=== PATIENT | male | born 1935 | race Caucasian/White ===

== ENCOUNTER → 2019-12-12 13:22 | Outpatient (BNVA) | payer MEDICARE, SELFPAY | PROVIDERS: PCP Internal Medicine; Visit Provider Internal Medicine | DX: I48.20 Chronic atrial fibrillation, unspecified (principal); Z51.81 Encounter for therapeutic drug level monitoring; Z79.01 Long term (current) use of anticoagulants | CPT/HCPCS: 85610 ==

== ENCOUNTER 2020-01-04 13:05 | Inpatient (IN) | payer MEDICARE, SELFPAY ==
[2020-01-04] VITALS (18 sets, daily range): BP systolic 119–135; BP diastolic 59–82; PULSE 60–120; RESP 16–45; TEMP 36.9–37.4; O2SAT 87–98; BMI 26.6; BMI 26.4
--- NOTE | 2020-01-04 13:24 | ECG_ITS ---
Test Reason : WEAKNESS Blood Pressure : / mmHG Vent. Rate : 125 BPM Atrial Rate : 156 BPM P-R Int : 000 ms QRS Dur : 110 ms QT Int : 310 ms P-R-T Axes : 000 103 -46 degrees QTc Int : 447 ms Atrial fibrillation with rapid ventricular response with premature ventricular or aberrantly conducted complexes Rightward axis Incomplete right bundle branch block Possible Inferior infarct (cited on or before 15-JAN-2008) ST & T wave abnormality, consider lateral ischemia Abnormal ECG When compared with ECG of 15-JAN-2008 15:40, Significant changes have occurred Referred By: Maggi Workman Electronically Signed By:STAN SUMMERS MD
--- NOTE | 2020-01-04 13:25 | XR_ITS ---
EXAMINATION: XR CHEST CLINICAL INFORMATION: Cough shortness of breath and hypoxia COMPARISON: None TECHNIQUE: Frontal view of the chest was obtained. FINDINGS: There is mild cardiac enlargement. Diffuse multifocal infiltrates are present. No pleural effusions are seen. No peribronchial cuffing is seen. Findings are suggestive of multifocal pneumonia although an unusual manifestation of CHF is possibility but thought to be very unlikely. XR/XR chest 1V IMPRESSION: Diffuse multifocal infiltrates suggestive of pneumonia.
[2020-01-04] MEDS: Magnesium Sulfate/H2O 2 GM/50 ML PIGGYBACK IV (13:35)
--- NOTE | 2020-01-04 13:46 | ED.SOB ---
HPI - SOB/Dyspnea General Chief Complaint: Dyspnea Stated Complaint: sob Time Seen by Provider: 01/04/20 13:16 Source: EMS Mode of arrival: EMS Limitations: no limitations History of Present Illness HPI Narrative: 84 yo male with past medical history of afib on coumadin, recent RLE DVT and PE, OA, CAD s/p stents, HTN, HLD here with shortness of breath. The patient tells me that he has had shortness of breath over the last few days. He has had a dry cough. No fevers or chills or body aches. No chest pain. No leg swelling. On EMS arrival the patient had room air saturations in the high 70s. He received 125 mg of Solu-Medrol and a DuoNeb prior to arrival. Per family and the patient was around other family members on December 20 who were COVID positive. MD elicited complaint: shortness of breath Onset (ago): day(s) Timing: constant Severity: moderate Exacerbating factors: nothing Relieving factors: oxygen and rest Associated symptoms: denies other symptoms Treatment prior to arrival: oxygen and bronchodilator Related Data Home oxygen amount: none Home Medications Medication Instructions Recorded Confirmed amlodipine 1 tab PO DAILY 01/04/20 01/04/20 atorvastatin 1 tab PO DAILY 01/04/20 01/04/20 furosemide 1 tab PO DAILY 01/04/20 01/04/20 gabapentin 1 cap PO TID 01/04/20 01/04/20 gabapentin 1 cap PO TID 01/04/20 01/04/20 levothyroxine 1 tab PO Q OTHER DAY 01/04/20 01/04/20 lisinopril 1 tab PO DAILY 01/04/20 01/04/20 metoprolol succinate 1 tab PO DAILY 01/04/20 01/04/20 tamsulosin 1 cap PO DAILY 01/04/20 01/04/20 tamsulosin 1 cap PO DAILY 01/04/20 01/04/20 warfarin 1 tab PO DAILY 01/04/20 01/04/20 Allergies Allergy/AdvReac Type Severity Reaction Status Date / Time No Known Allergies Allergy Mild NO Verified 01/02/20 13:09 Review of Systems Review of Systems: Yes all other systems are reviewed and are negative Constitutional: Constitutional: Reports no additional constitutional complaints, Denies body ache(s), Denies chills, Denies fever(s), Denies headache(s) and Denies weakness Eyes: Eyes: Reports no additional eye complaints and Denies change in vision ENT: Reports system reviewed and no additional complaints, except as documented, Denies dizziness, Denies headache(s), Denies nasal congestion, Denies nasal discharge and Denies neck pain Cardiovascular: Cardiovascular: Reports no additional cardiovascular complaints, Denies chest pain, Denies leg edema and Reports dyspnea Respiratory: Respiratory: Reports no additional respiratory complaints, Reports cough and Reports dyspnea Gastrointestinal: Gastrointestinal: Reports no additional gastrointestinal complaints, Denies abdominal pain, Denies diarrhea, Denies nausea and Denies vomiting Genitourinary: Genitourinary: Denies urinary incontinence Musculoskeletal: Musculoskeletal: Reports no additional musculoskeletal complaints, Denies back pain, Denies arthralgias, Denies joint swelling, Denies neck pain, Denies numbness and Denies tingling Integumentary/Breasts: Skin/Breast: Reports system reviewed and no additional complaints, except as docu and Denies rash Neurologic: Reports system reviewed and no additional complaints, except as documented, Denies Abnormal speech present, Denies dizziness, Denies headache(s), Denies numbness, Denies tingling and Denies weakness PMFSH Past Medical History Attestation statement: The following information was validated with the patient. Source: obtained from family and nursing notes reviewed Medical History (Updated 01/04/20 @ 17:05 by Maggi Workman NP) A-fib COPD (chronic obstructive pulmonary disease) Coronary artery disease DVT (deep venous thrombosis) High cholesterol Hypertension Osteoarthritis Pulmonary embolism Surgical History (Updated 01/04/20 @ 13:51 by Maggi Workman NP) H/O heart artery stent Social History Social History Alcohol intake: never Smoked in Last 30 Days: No Use of substances other than those prescribed or required for medical reasons: No Advance Directives: No Advance Directives Information Provided: No Physical Exam Vital Signs: Vital Signs: Vital Signs Temp Pulse Resp BP Pulse Ox 01/04/20 16:50 98 125/59 L 01/04/20 14:25 120 H 30 H 90 L 01/04/20 13:50 30 H 01/04/20 13:45 100 126/69 01/04/20 13:19 98.7 F 102 H 45 H 135/74 87 L 01/04/20 13:15 111 H 135/74 Body Mass Index 26.6 Const: General: in distress respiratory Orientation/consciousness: patient oriented x3 Limitations: no limitations HENMT: Head: Yes normal to inspection Ears: hearing grossly normal bilaterally General nose exam: Normal external nose present Face and sinus: Yes normal facial exam Mouth: Normal oral and palatal mucosa present Throat: Yes posterior oropharynx normal Eyes: General: appearance normal, both eyes and all related structures Pupils: Equal, round and reactive pupils present Neck: Neck: Yes normal visual inspection Chest: Chest palpation & inspection: normal inspection of the chest Resp: Other: Patient is sitting upright slightly leaning forward speaking short phrases. His has a respiratory rate in the 30s. He has mild intercostal retractions. He has diminished breath sounds bilaterally with some expiratory wheezing noted in the bilateral upper airways. Cardio: Rate: tachycardic Rhythm: regular rhythm Peripheral pulses: Peripheral pulses 2+ throughout GI: Inspection: Yes normal to inspection Palpation (GI): Soft to palpation and nontender Auscultation: normal bowel sounds Back/Spine/Pelvis: Thoracic/Lumbar Spine: thoracic and lumbar spine normal to inspection Skin: General skin exam: no rashes or lesions noted Neuro: General: patient oriented x3, no focal motor deficits and normal sensation to monofilament Cranial nerves: Yes Equal, round and reactive pupils present Cognition (Neuro): normal cognition Speech: No Abnormal speech present Gait exam (Neuro): Normal gait present Motor exam (neuro): 5/5 motor strength present throughout Extrem: General: Yes normal to inspection Course Course Course Narrative: 84 yo male Here with shortness of breath, cough for the last few days. On arrival the patient is tachycardic, tachypneic, hypoxic (79%). He was placed on 6 L of oxygen with an oxygen saturation improving to greater than 90%. He has had COVID exposure. Will need labs including blood cultures, lactic acid, COVID labs, rapid COVID test, chest x-ray, EKG. Received Solu-Medrol and a DuoNeb prior to arrival. Will give additional albuterol, magnesium, gentle hydration. 1400-Discussed with family/patient. Patient is full code. Will need admission. 1440- Chest x-ray consistent with multifocal pneumonia. Patient has already received a dose of ceftriaxone. Added on azithromycin. Likely from COVID infection. 1700- COVID positive. Patient currently has an oxygen saturation 92% on 100% non-rebreather. His ABG shows respiratory alkalosis with some compensation. Alert and oriented x3. Will continue oxygen delivery method. Initial troponin was mildly elevated. Likely due to demand ischemia. No EKG changes or chest pain. Will plan for 3 hour repeat troponin. D-dimer is elevated which is likely secondary to COVID infection. Patient is currently anticoagulated with therapeutic INR and already has a history of pulmonary embolism. No need for additional imaging at this time. Potassium 3.0. Patient was given p.o. 40 mEq replacement. BNP mildly elevated. No signs or symptoms of fluid overload. Chest x-ray does show some vascular congestion so 20 mg of IV Lasix was ordered. Patient had a mildly elevated lactic acid. He was given gentle hydration due to concern for fluid overload and received 500 of normal saline IV. A Pbalo catheter was placed by nursing. Discussed case with Dr Bello from ICU. Plan for admit to ICU service. I did call and update family (son ROBBY) and they are aware of plan for admission. MDM - SOB/Dyspnea MDM Narrative Medical decision making narrative: Considered COVID infection, viral syndrome, PNA, PE, CHF exacerbation COVID infection with multifocal PNA. H/o PE with therapeutic INR, not likely saddle PE, not likely new PE. Medicine can trend d dimer. Also likely CHF new onset with elevated BNP and x-ray concerning with some vascular congestion. Medical Records Attestation: I reviewed the patient's medical records. Lab Data Attestation: I reviewed the patient's lab results. Result diagrams: 01/04/20 14:14 01/04/20 14:13 Labs: Lab Results 01/04/20 01/04/20 01/04/20 Range/Units 14:13 14:13 14:13 WBC (4.8-10.8) X10*3/uL RBC (4.60-5.80) X10*6/uL Hgb (14.0-18.0) g/dl Hct (42-52) % MCV (80-98) fL MCH (27.0-33.0) pg MCHC (31.0-36.0) g/dl RDW (11.0-16.0) % Plt Count (160-400) X10*3/uL MPV (9.4-12.4) fL Immature Gran % (Auto) (0.0-0.4) % Neut % (Auto) (45-73) % Lymph % (Auto) (20-40) % [place] % (Auto) (2-11) % Eos % (Auto) (0-4) % Baso % (Auto) (0-2) % Lymph # (Auto) (1.2-4.9) X10*3/uL [place] # (Auto) (0.1-1.2) X10*3/uL Eos # (Auto) (0.0-0.4) X10*3/uL Baso # (Auto) (0.0-0.2) X10*3/uL Abs Immat Gran (auto) (0.00-0.03) X10*3/uL Absolute Neuts (auto) (2.0-8.3) X10*3/uL Absolute Nucleated RBC (0.0-0.012) X10*3/uL Nucleated RBC % (auto) (0.0-0.2) /100WBC Smear Tech's Comments PT 28.7 H (10.8-13.0) SEC INR 2.4 H (0.9-1.1) D-Dimer 1796 NG/ML ABG pH (7.35-7.45) ABG pCO2 (32-45) mmhg ABG pO2 (83-108) mmhg ABG HCO3 (22-26) mmol/l ABG O2 Saturation % ABG Base Excess Oxygen Given Sodium 141 (135-145) mmol/L Potassium 3.0 L (3.3-5.1) mmol/l Chloride 108 (96-108) mmol/L Carbon Dioxide 19 L (22-29) mmol/L Anion Gap 17 (12-20) BUN 18 H (9-16) mg/dL Creatinine 0.90 (0.5-1.4) mg/dL Estim Creat Clear Calc 56.1 Estimated GFR > 60 Random Glucose 172 H (60-115) mg/dL Lactic Acid 2.8 H* (0.5-2.0) mmol/L Calcium 7.4 L (8.4-10.2) mg/dL Magnesium 3.3 H (1.6-2.6) mg/dL Ferritin (20-250) ng/mL Total Bilirubin 1.4 H (0.0-1.0) mg/dL Direct Bilirubin 0.7 H (0.0-0.5) mg/dL AST 20 (5-37) U/L ALT 10 (0-40) U/L Alkaline Phosphatase 127 H (39-117) U/L Lactate Dehydrogenase (118-273) U/L Total Creatine Kinase 106 (38-174) U/L Troponin I High Sens (<3.5-35.0) ng/L B-Natriuretic Peptide (<100) pg/mL Total Protein 6.1 L (6.5-8.0) g/dL Albumin 3.1 L (3.5-5.0) g/dL Procalcitonin ng/mL Coronavirus (PCR) (Negative) 01/04/20 01/04/20 01/04/20 Range/Units 14:13 14:14 14:14 WBC 6.6 (4.8-10.8) X10*3/uL RBC 4.16 L (4.60-5.80) X10*6/uL Hgb 11.2 L (14.0-18.0) g/dl Hct 35.9 L (42-52) % MCV 86.3 (80-98) fL MCH 26.9 L (27.0-33.0) pg MCHC 31.2 (31.0-36.0) g/dl RDW 16.2 H (11.0-16.0) % Plt Count 283 (160-400) X10*3/uL MPV 9.1 L (9.4-12.4) fL Immature Gran % (Auto) 0.6 H (0.0-0.4) % Neut % (Auto) 92.7 H (45-73) % Lymph % (Auto) 4.4 L (20-40) % [place] % (Auto) 2.1 (2-11) % Eos % (Auto) 0.0 (0-4) % Baso % (Auto) 0.2 (0-2) % Lymph # (Auto) 0.3 L (1.2-4.9) X10*3/uL [place] # (Auto) 0.1 (0.1-1.2) X10*3/uL Eos # (Auto) 0.0 (0.0-0.4) X10*3/uL Baso # (Auto) 0.0 (0.0-0.2) X10*3/uL Abs Immat Gran (auto) 0.04 H (0.00-0.03) X10*3/uL Absolute Neuts (auto) 6.1 (2.0-8.3) X10*3/uL Absolute Nucleated RBC 0.000 (0.0-0.012) X10*3/uL Nucleated RBC % (auto) 0.0 (0.0-0.2) /100WBC Smear Tech's Comments VERIFIED PT (10.8-13.0) SEC INR (0.9-1.1) D-Dimer NG/ML ABG pH (7.35-7.45) ABG pCO2 (32-45) mmhg ABG pO2 (83-108) mmhg ABG HCO3 (22-26) mmol/l ABG O2 Saturation % ABG Base Excess Oxygen Given Sodium (135-145) mmol/L Potassium (3.3-5.1) mmol/l Chloride (96-108) mmol/L Carbon Dioxide (22-29) mmol/L Anion Gap (12-20) BUN (9-16) mg/dL Creatinine (0.5-1.4) mg/dL Estim Creat Clear Calc Estimated GFR Random Glucose (60-115) mg/dL Lactic Acid (0.5-2.0) mmol/L Calcium (8.4-10.2) mg/dL Magnesium (1.6-2.6) mg/dL Ferritin 227 (20-250) ng/mL Total Bilirubin (0.0-1.0) mg/dL Direct Bilirubin (0.0-0.5) mg/dL AST (5-37) U/L ALT (0-40) U/L Alkaline Phosphatase (39-117) U/L Lactate Dehydrogenase 470 H (118-273) U/L Total Creatine Kinase (38-174) U/L Troponin I High Sens 24.7 (<3.5-35.0) ng/L B-Natriuretic Peptide 478 H (<100) pg/mL Total Protein (6.5-8.0) g/dL Albumin (3.5-5.0) g/dL Procalcitonin ng/mL Coronavirus (PCR) (Negative) 01/04/20 01/04/20 01/04/20 Range/Units 14:14 14:15 15:09 WBC (4.8-10.8) X10*3/uL RBC (4.60-5.80) X10*6/uL Hgb (14.0-18.0) g/dl Hct (42-52) % MCV (80-98) fL MCH (27.0-33.0) pg MCHC (31.0-36.0) g/dl RDW (11.0-16.0) % Plt Count (160-400) X10*3/uL MPV (9.4-12.4) fL Immature Gran % (Auto) (0.0-0.4) % Neut % (Auto) (45-73) % Lymph % (Auto) (20-40) % [place] % (Auto) (2-11) % Eos % (Auto) (0-4) % Baso % (Auto) (0-2) % Lymph # (Auto) (1.2-4.9) X10*3/uL [place] # (Auto) (0.1-1.2) X10*3/uL Eos # (Auto) (0.0-0.4) X10*3/uL Baso # (Auto) (0.0-0.2) X10*3/uL Abs Immat Gran (auto) (0.00-0.03) X10*3/uL Absolute Neuts (auto) (2.0-8.3) X10*3/uL Absolute Nucleated RBC (0.0-0.012) X10*3/uL Nucleated RBC % (auto) (0.0-0.2) /100WBC Smear Tech's Comments PT (10.8-13.0) SEC INR (0.9-1.1) D-Dimer NG/ML ABG pH 7.49 H (7.35-7.45) ABG pCO2 28 L (32-45) mmhg ABG pO2 59 L (83-108) mmhg ABG HCO3 21 L (22-26) mmol/l ABG O2 Saturation 90.3 % ABG Base Excess -1.6 Oxygen Given 50% Sodium (135-145) mmol/L Potassium (3.3-5.1) mmol/l Chloride (96-108) mmol/L Carbon Dioxide (22-29) mmol/L Anion Gap (12-20) BUN (9-16) mg/dL Creatinine (0.5-1.4) mg/dL Estim Creat Clear Calc Estimated GFR Random Glucose (60-115) mg/dL Lactic Acid (0.5-2.0) mmol/L Calcium (8.4-10.2) mg/dL Magnesium (1.6-2.6) mg/dL Ferritin (20-250) ng/mL Total Bilirubin (0.0-1.0) mg/dL Direct Bilirubin (0.0-0.5) mg/dL AST (5-37) U/L ALT (0-40) U/L Alkaline Phosphatase (39-117) U/L Lactate Dehydrogenase (118-273) U/L Total Creatine Kinase (38-174) U/L Troponin I High Sens (<3.5-35.0) ng/L B-Natriuretic Peptide (<100) pg/mL Total Protein (6.5-8.0) g/dL Albumin (3.5-5.0) g/dL Procalcitonin 0.08 ng/mL Coronavirus (PCR) POSITIVE A (Negative) Imaging Data Chest x-ray: Attestation: I personally reviewed and interpreted this imaging study as follows: Radiologist's impression: EXAMINATION: XR CHEST CLINICAL INFORMATION: Cough shortness of breath and hypoxia COMPARISON: None TECHNIQUE: Frontal view of the chest was obtained. FINDINGS: There is mild cardiac enlargement. Diffuse multifocal infiltrates are present. No pleural effusions are seen. No peribronchial cuffing is seen. Findings are suggestive of multifocal pneumonia although an unusual manifestation of CHF is possibility but thought to be very unlikely. XR/XR chest 1V IMPRESSION: Diffuse multifocal infiltrates suggestive of pneumonia. ECG Data Attestation: I personally reviewed and interpreted this ECG as follows: ECG interpretation date: 01/04/20 ECG interpretation time: 15:09 Interpretation: AFIB with RVR with rate 125. normal qrs, normal qt Critical Care Time Critical Care Time Total Critical Care Time: 60 Attestation: Multiple re-evaluations for respiratory effort with titration of oxygen. Discussion with both hospital service and intensive care unit. Discharge Plan Discharge Clinical Impression: COVID-19, CHF (congestive heart failure), Pneumonia, Elevated lactic acid level, D-dimer, elevated, Elevated troponin, Acute hypokalemia, Hypocalcemia Patient Disposition: Admitted As Inpatient
--- NOTE | 2020-01-04 13:49 | PC.NURSE ---
LABS COMPLETED. MEDICATED PER EMAR. RT AT BEDSIDE FOR TREATMENT AND ABG.
[2020-01-04] MEDS: Albuterol Sulfate (0.083%) 2.5 MG/3 ML VIAL.NEB 5 MG INHALE (13:54)
--- NOTE | 2020-01-04 13:56 | PC.NURSE ---
all labs stuck in lab shoot. care mgr aware.
[2020-01-04] MEDS: 0.9 % Sodium Chloride 500 ML 999 ML IV (14:17)
--- NOTE | 2020-01-04 14:17 | PC.NURSE ---
ALL LABS RE OBTAINED AND SENT
[2020-01-04] MEDS: cefTRIAXone sodium 1 GM in 0.9 % Sodium Chloride 50 ML IV (14:22)
[2020-01-04 14:23] LABS: Pt Ventilation O2% 50%
[2020-01-04 14:26] LABS: Basophils Percent Auto 0.2 % (0-2); Hematocrit 35.9 % (42-52); Hemoglobin 11.2 g/dl (14.0-18.0); Imm Gran Abs Auto 0.04 X10*3/uL (0.00-0.03); Imm Gran Pct Auto 0.6 % (0.0-0.4); Lymphocytes Absolute Auto 0.3 X10*3/uL (1.2-4.9); Lymphocytes Percent Auto 4.4 % (20-40); MANUAL DIFF FLAG SCAN; Mean Corpuscular HGB Conc 31.2 g/dl (31.0-36.0); Mean Corpuscular Hemoglobin 26.9 pg (27.0-33.0); Mean Corpuscular Volume 86.3 fL (80-98); Mean Platelet Volume 9.1 fL (9.4-12.4); Monocytes Absolute Auto 0.1 X10*3/uL (0.1-1.2); Monocytes Percent Auto 2.1 % (2-11); Neutrophils Absolute Auto 6.1 X10*3/uL (2.0-8.3); Neutrophils Percent Auto 92.7 % (45-73); Platelet Count 283 X10*3/uL (160-400); Red Blood Count 4.16 X10*6/uL (4.60-5.80); Red Cell Distribution Width 16.2 % (11.0-16.0); SCAN SMEAR FLAG 1; White Blood Count 6.6 X10*3/uL (4.8-10.8)
[2020-01-04 14:27] LABS: ABG PCO2 28 mmhg (32-45); HCO3 ABG 21 mmol/l (22-26); PO2 ABG 59 mmhg (83-108); pH ABG 7.49 (7.35-7.45)
[2020-01-04 14:28] LABS: Base Excess ABG -1.6; Oxygen Saturation ABG 90.3 %
[2020-01-04 14:31] LABS: INTERNATIONAL NORM RATIO 2.4 (0.9-1.1); Prothrombin Time 28.7 SEC (10.8-13.0)
[2020-01-04 14:45] LABS: SLIDE REVIEW VERIFIED
[2020-01-04 14:47] LABS: Lactate Dehydrogenase 470 U/L (118-273)
[2020-01-04 14:50] LABS: Alanine Aminotransferase 10 U/L (0-40); Albumin Level 3.1 g/dL (3.5-5.0); Alkaline Phosphatase 127 U/L (39-117); Anion Gap 17 (12-20); Aspartate Amino Transferase 20 U/L (5-37); Bilirubin Direct 0.7 mg/dL (0.0-0.5); Bilirubin Total 1.4 mg/dL (0.0-1.0); Blood Urea Nitrogen 18 mg/dL (9-16); Calcium 7.4 mg/dL (8.4-10.2); Carbon Dioxide 19 mmol/L (22-29); Chloride 108 mmol/L (96-108); Creatinine Clr Calc Pharmacy 56.1; Estimated Glomerular Filt Rate > 60; Glucose Random 172 mg/dL (60-115); Magnesium 3.3 mg/dL (1.6-2.6); Sodium 141 mmol/L (135-145); Total Protein 6.1 g/dL (6.5-8.0)
[2020-01-04 14:58] LABS: B Type Natriuretic Peptide 478 pg/mL (<100); Troponin-I High Sensitivity 24.7 ng/L (<3.5-35.0)
[2020-01-04 15:03] LABS: Lactic Acid 2.8 mmol/L (0.5-2.0)
[2020-01-04 15:12] LABS: Ferritin 227 ng/mL (20-250); Procalcitonin 0.08 ng/mL
[2020-01-04] MEDS: Azithromycin 500 MG in 0.9 % Sodium Chloride 250 ML 125 MG IV (15:25)
[2020-01-04] MEDS: Potassium Chloride ER 20 MEQ TAB.ER.PRT 40 MEQ PO (15:25)
[2020-01-04 16:12] LABS: SARS COV2 PCR INHOUSE POSITIVE (Negative)
--- NOTE | 2020-01-04 16:18 | PC.NURSE ---
pediatric np in contact with family. aware of plan of care and denied having any questions.
[2020-01-04 16:20] LABS: Reflex Lactate? Lactic Acid Added
[2020-01-04 16:48] LABS: D Dimer 1796 NG/ML
[2020-01-04] MEDS: Furosemide 20 MG/2 ML VIAL IVPUSH (16:49)
[2020-01-04 17:17] LABS: Glucose Urine UA NEG (NEG); Leukocyte Esterase Urine NEG (NEG); Nitrite Urine NEG (NEG); PH 5.5 (5.0-8.0); Specific Gravity - Urine 1.025 (1.005-1.025); Urine Blood TRACE (NEG); Urine Ketones NEG (NEG); Urine Protein 1+ MG/DL (NEG-TRACE)
[2020-01-04 17:19] LABS: Appearance Urine CLEAR; Color Urine YELLOW
[2020-01-04 17:24] LABS: Mucus Urine TRACE /LPF; Squamous Epithelial Cell Urine TRACE /LPF; WBC Urine 0 /HPF (0-4)
--- NOTE | 2020-01-04 17:24 | PC.NURSE ---
ramesh (son) cell [phone], [place] [phone] rosendo (son) cell [phone]
[2020-01-04 17:25] LABS: Hyaline Casts Urine 0-2 /LPF
--- NOTE | 2020-01-04 17:36 | P.HPCC_ITS ---
History of Present Illness Date of Service: 01/04/20 Chief Complaint: shortness of breath 84-year-old male about 0 a week ago went to a green party with 17 gas a number of whom inadvertently were [place] id 19 positive he 2 became positive started to develop progressive dyspnea this on a background of previous ischemic heart disease with evidence of cardiac dysfunction chronic atrial fibrillation and he is I anticoagulated on Coumadin and therapeutic with INR of 2.4 and is on metoprolol high-dose 200 mg for heart rate control and is EKG now shows atrial fibrillation with rate 120 with respiratory rate that is at least 30 clearly with diaphragmatic effort as well but barely compensated oxygen saturation of 90% on a 100% non-rebreather and he has a right intraventricular conduction defect and nonspecific ST-T changes by EKG he is also 1 lisinopril as an antihypertensive/vaso dilator and amlodipine not known to be a diabetic and thankfully has preserved liver function and renal function but has almost 1800 D-dimer and chest x-ray significant bilateral infiltrates but clearly has evidence of small bilateral pleural effusions and interstitial component which I think is consistent with pulmonary edema as well Review of Systems Review of Systems: 10 point review of systems otherwise negative Constitutional: Constitutional: Denies headache(s) and Denies weakness ENT: Denies dizziness and Denies headache(s) Musculoskeletal: Musculoskeletal: Denies numbness and Denies tingling Neurologic: Reports system reviewed and no additional complaints, except as documented, Denies Abnormal speech present, Denies dizziness, Denies headache(s), Denies numbness, Denies tingling and Denies weakness PMFSH Past Medical History Medical History (Updated 01/04/20 @ 17:45 by Maddie Bello MD) A-fib COPD (chronic obstructive pulmonary disease) Coronary artery disease DVT (deep venous thrombosis) High cholesterol Hypertension Osteoarthritis Pulmonary embolism Surgical History Surgical History (Updated 01/04/20 @ 13:51 by Maggi Workman NP) H/O heart artery stent Social History Social History Alcohol intake: never Smoked in Last 30 Days: No Use of substances other than those prescribed or required for medical reasons: No Advance Directives: No Advance Directives Information Provided: No Meds Allergies Allergy/AdvReac Type Severity Reaction Status Date / Time No Known Allergies Allergy Mild NO Verified 01/02/20 13:09 Home Medications Medication Instructions Recorded Confirmed Type amlodipine 1 tab PO DAILY 01/04/20 01/04/20 History atorvastatin 1 tab PO DAILY 01/04/20 01/04/20 History furosemide 1 tab PO DAILY 01/04/20 01/04/20 History gabapentin 1 cap PO TID 01/04/20 01/04/20 History gabapentin 1 cap PO TID 01/04/20 01/04/20 History levothyroxine 1 tab PO Q OTHER DAY 01/04/20 01/04/20 History lisinopril 1 tab PO DAILY 01/04/20 01/04/20 History metoprolol succinate 1 tab PO DAILY 01/04/20 01/04/20 History tamsulosin 1 cap PO DAILY 01/04/20 01/04/20 History tamsulosin 1 cap PO DAILY 01/04/20 01/04/20 History warfarin 1 tab PO DAILY 01/04/20 01/04/20 History Physical Exam Vital Signs: Vital Signs: Vital Signs Temp Pulse Resp BP Pulse Ox 01/04/20 16:50 98 125/59 L 01/04/20 14:25 120 H 30 H 90 L 01/04/20 13:50 30 H 01/04/20 13:45 100 126/69 01/04/20 13:19 98.7 F 102 H 45 H 135/74 87 L 01/04/20 13:15 111 H 135/74 Body Mass Index 26.6 awake alert and not expressing distress but he notes increased work of breathing neurologically he is intact no focality skin is normal warm well perfused no edema no acrocyanosis no livedo no decubitus cardiac exam there is some neck vein distension he has got modestly reduced bilateral carotid upstrokes but palpable bedside echo shows moderate diffuse hypokinesis of the ventricle with 40% ejection fraction and a moderately dilated right heart with at least a 60 mm mercury pulmonary artery 6 systolic pressure which is severe and there is distention of the IVC without inspiratory collapse indicating elevated right heart filling pressures aortic valve also significantly calcific but I do not believe critically stenosed abdomen benign no organomegaly and good bowel sounds soft and nondistended chest with bilateral wheeze and diffuse rales Neuro: Speech: No Abnormal speech present Results Labs Labs: Laboratory Tests 01/04/20 01/04/20 01/04/20 14:13 14:13 14:13 WBC RBC Hgb Hct MCV MCH MCHC RDW Plt Count MPV Immature Gran % (Auto) Neut % (Auto) Lymph % (Auto) [place] % (Auto) Eos % (Auto) Baso % (Auto) Lymph # (Auto) [place] # (Auto) Eos # (Auto) Baso # (Auto) Abs Immat Gran (auto) Absolute Neuts (auto) Absolute Nucleated RBC Nucleated RBC % (auto) Smear Tech's Comments PT 28.7 H INR 2.4 H D-Dimer 1796 ABG pH ABG pCO2 ABG pO2 ABG HCO3 ABG O2 Saturation ABG Base Excess Oxygen Given Sodium 141 Potassium 3.0 L Chloride 108 Carbon Dioxide 19 L Anion Gap 17 BUN 18 H Creatinine 0.90 Estim Creat Clear Calc 56.1 Estimated GFR > 60 Random Glucose 172 H Lactic Acid 2.8 H* Calcium 7.4 L Magnesium 3.3 H Ferritin Total Bilirubin 1.4 H Direct Bilirubin 0.7 H AST 20 ALT 10 Alkaline Phosphatase 127 H Lactate Dehydrogenase Total Creatine Kinase 106 Troponin I High Sens B-Natriuretic Peptide Total Protein 6.1 L Albumin 3.1 L Procalcitonin Urine Color Urine Appearance Urine pH Ur Specific [place] Urine Protein Urine Glucose (UA) Urine Ketones Urine Blood Urine Nitrite Ur Leukocyte Esterase Urine RBC Urine WBC Ur Squamous Epith Cells Urine Bacteria Hyaline Casts Urine Mucus Coronavirus (PCR) 01/04/20 01/04/20 01/04/20 14:13 14:14 14:14 WBC 6.6 RBC 4.16 L Hgb 11.2 L Hct 35.9 L MCV 86.3 MCH 26.9 L MCHC 31.2 RDW 16.2 H Plt Count 283 MPV 9.1 L Immature Gran % (Auto) 0.6 H Neut % (Auto) 92.7 H Lymph % (Auto) 4.4 L [place] % (Auto) 2.1 Eos % (Auto) 0.0 Baso % (Auto) 0.2 Lymph # (Auto) 0.3 L [place] # (Auto) 0.1 Eos # (Auto) 0.0 Baso # (Auto) 0.0 Abs Immat Gran (auto) 0.04 H Absolute Neuts (auto) 6.1 Absolute Nucleated RBC 0.000 Nucleated RBC % (auto) 0.0 Smear Tech's Comments VERIFIED PT INR D-Dimer ABG pH ABG pCO2 ABG pO2 ABG HCO3 ABG O2 Saturation ABG Base Excess Oxygen Given Sodium Potassium Chloride Carbon Dioxide Anion Gap BUN Creatinine Estim Creat Clear Calc Estimated GFR Random Glucose Lactic Acid Calcium Magnesium Ferritin 227 Total Bilirubin Direct Bilirubin AST ALT Alkaline Phosphatase Lactate Dehydrogenase 470 H Total Creatine Kinase Troponin I High Sens 24.7 B-Natriuretic Peptide 478 H Total Protein Albumin Procalcitonin Urine Color Urine Appearance Urine pH Ur Specific [place] Urine Protein Urine Glucose (UA) Urine Ketones Urine Blood Urine Nitrite Ur Leukocyte Esterase Urine RBC Urine WBC Ur Squamous Epith Cells Urine Bacteria Hyaline Casts Urine Mucus Coronavirus (PCR) 01/04/20 01/04/20 01/04/20 14:14 14:15 15:09 WBC RBC Hgb Hct MCV MCH MCHC RDW Plt Count MPV Immature Gran % (Auto) Neut % (Auto) Lymph % (Auto) [place] % (Auto) Eos % (Auto) Baso % (Auto) Lymph # (Auto) [place] # (Auto) Eos # (Auto) Baso # (Auto) Abs Immat Gran (auto) Absolute Neuts (auto) Absolute Nucleated RBC Nucleated RBC % (auto) Smear Tech's Comments PT INR D-Dimer ABG pH 7.49 H ABG pCO2 28 L ABG pO2 59 L ABG HCO3 21 L ABG O2 Saturation 90.3 ABG Base Excess -1.6 Oxygen Given 50% Sodium Potassium Chloride Carbon Dioxide Anion Gap BUN Creatinine Estim Creat Clear Calc Estimated GFR Random Glucose Lactic Acid Calcium Magnesium Ferritin Total Bilirubin Direct Bilirubin AST ALT Alkaline Phosphatase Lactate Dehydrogenase Total Creatine Kinase Troponin I High Sens B-Natriuretic Peptide Total Protein Albumin Procalcitonin 0.08 Urine Color Urine Appearance Urine pH Ur Specific [place] Urine Protein Urine Glucose (UA) Urine Ketones Urine Blood Urine Nitrite Ur Leukocyte Esterase Urine RBC Urine WBC Ur Squamous Epith Cells Urine Bacteria Hyaline Casts Urine Mucus Coronavirus (PCR) POSITIVE A 01/04/20 17:08 WBC RBC Hgb Hct MCV MCH MCHC RDW Plt Count MPV Immature Gran % (Auto) Neut % (Auto) Lymph % (Auto) [place] % (Auto) Eos % (Auto) Baso % (Auto) Lymph # (Auto) [place] # (Auto) Eos # (Auto) Baso # (Auto) Abs Immat Gran (auto) Absolute Neuts (auto) Absolute Nucleated RBC Nucleated RBC % (auto) Smear Tech's Comments PT INR D-Dimer ABG pH ABG pCO2 ABG pO2 ABG HCO3 ABG O2 Saturation ABG Base Excess Oxygen Given Sodium Potassium Chloride Carbon Dioxide Anion Gap BUN Creatinine Estim Creat Clear Calc Estimated GFR Random Glucose Lactic Acid Calcium Magnesium Ferritin Total Bilirubin Direct Bilirubin AST ALT Alkaline Phosphatase Lactate Dehydrogenase Total Creatine Kinase Troponin I High Sens B-Natriuretic Peptide Total Protein Albumin Procalcitonin Urine Color YELLOW Urine Appearance CLEAR Urine pH 5.5 Ur Specific [place] 1.025 Urine Protein 1+ H Urine Glucose (UA) NEG Urine Ketones NEG Urine Blood TRACE Urine Nitrite NEG Ur Leukocyte Esterase NEG Urine RBC 1-4 Urine WBC 0 Ur Squamous Epith Cells TRACE Urine Bacteria NONE Hyaline Casts 0-2 Urine Mucus TRACE Coronavirus (PCR) Assessment and Plan (1) COVID-19: Status: Acute (2) CHF (congestive heart failure): Status: Acute (3) Pneumonia: Status: Acute (4) Elevated lactic acid level: Status: Acute (5) D-dimer, elevated: Status: Acute (6) Elevated troponin: Status: Acute (7) Acute hypokalemia: Status: Acute (8) Hypocalcemia: Status: Acute (9) Current use of anticoagulant therapy: Status: Acute (10) Acute respiratory failure with hypoxia: Status: Acute we will bring over to the ICU and today we will withhold any further lisinopril and metoprolol and I will begin the process of adding digoxin for heart rate control to reduce the metoprolol for the sake of myocardial reserve and follow his prothrombin time and has that become subtherapeutic introduce full anticoagulation probably via heparin and he will receive 1 unit of convalescent plasma and because of the contributing cardiomyopathy and pulmonary edema 1 dose of Lasix now and then p.r.n. and potassium replacement orally begin with nasal high-flow for the benefit of positive-pressure and if that is not adequate and it in this case intubation might need to be considered sooner
--- NOTE | 2020-01-04 18:29 | PC.NURSE ---
report given to icu
[2020-01-04] MEDS: Digoxin 0.5 MG/2 ML AMPUL 0.25 MG IVPUSH ×2 (19:55→23:09)
[2020-01-04 20:48] LABS: ~Lactic Acid-LAB USE ONLY 2.8 mmol/L (0.5-2.0)
[2020-01-04] MEDS: Remdesivir 200 MG in 0.9 % Sodium Chloride 210 ML 125 MG IV (21:16)
[2020-01-04 21:56] LABS: Reflex Lactate? 2 Y
[2020-01-04] MEDS: Furosemide 40 MG/4 ML VIAL IVPUSH (23:14)
[2020-01-04 23:20] LABS: ~Lactic Acid-LAB USE ONLY 2.4 mmol/L (0.5-2.0)
[2020-01-05] VITALS (34 sets, daily range): BP systolic 79–177; BP diastolic 43–86; PULSE 57–131; RESP 17–44; TEMP 35.5–37.1; O2SAT 90–98; BMI 26.5
[2020-01-05 02:20] LABS: Cancel Lactic Acid Canceled
[2020-01-05 05:34] LABS: Base Excess VBG 0.3 mmol/L; HCO3 VBG 23 mmol/L; Oxygen Saturation VBG 81.4 %; PCO2 VBG 31 mmhg; PO2 VBG 45 mmhg; pH VBG 7.49 (7.32-7.43)
[2020-01-05 05:35] LABS: Hematocrit 33.6 % (42-52); Hemoglobin 10.5 g/dl (14.0-18.0); Imm Gran Abs Auto 0.03 X10*3/uL (0.00-0.03); Imm Gran Pct Auto 0.5 % (0.0-0.4); Lymphocytes Absolute Auto 0.2 X10*3/uL (1.2-4.9); Lymphocytes Percent Auto 2.6 % (20-40); MANUAL DIFF FLAG SCAN; Mean Corpuscular HGB Conc 31.3 g/dl (31.0-36.0); Mean Corpuscular Hemoglobin 27.3 pg (27.0-33.0); Mean Corpuscular Volume 87.3 fL (80-98); Mean Platelet Volume 9.6 fL (9.4-12.4); Monocytes Absolute Auto 0.2 X10*3/uL (0.1-1.2); Monocytes Percent Auto 2.4 % (2-11); Neutrophils Absolute Auto 6.3 X10*3/uL (2.0-8.3); Neutrophils Percent Auto 94.5 % (45-73); Platelet Count 250 X10*3/uL (160-400); Red Blood Count 3.85 X10*6/uL (4.60-5.80); Red Cell Distribution Width 16.1 % (11.0-16.0); SCAN SMEAR FLAG 1; White Blood Count 6.7 X10*3/uL (4.8-10.8)
[2020-01-05 05:48] LABS: Prothrombin Time 24.1 SEC (10.8-13.0)
--- NOTE | 2020-01-05 05:48 | PC.NURSE ---
Pt a&o x3. In ICU on hi flow O2 at 60L an 100%. Arrived in ICU at 1900 on hi flow 50L and 100%. O2 sats 92-95% but kept dropping to as low as 84% and was increased to 60L. Then as pt was dozing, sats started dropping again to 80's and it was believed that it was because he was mouth breathing so facemask at 100% applied over hi flow nasal cannula. Pt received remdesivir and convalescent plasma without complication. Had a dose of Lasix 40 mg IV prior to convalescent plasma administration. U/O very good via govea cath. Vital signs stable. Monitor shows afib, HR was 110's on arrival to unit. Two doses of digoxin 0.25 mg IV given. Heart rate down to 70's at this time. Pt states he didn't sleep well; only slept in short naps. he is pleasant but irritable at this time.
[2020-01-05 05:54] LABS: Albumin Level 3.1 g/dL (3.5-5.0); Anion Gap 15 (12-20); Blood Urea Nitrogen 17 mg/dL (9-16); Calcium 7.5 mg/dL (8.4-10.2); Carbon Dioxide 22 mmol/L (22-29); Chloride 110 mmol/L (96-108); Creatinine Clr Calc Pharmacy 60.8; Estimated Glomerular Filt Rate > 60; Glucose Random 155 mg/dL (60-115); Magnesium 2.1 mg/dL (1.6-2.6); Phosphorus 2.9 mg/dL (2.7-4.5); Potassium 3.4 mmol/l (3.3-5.1); Sodium 144 mmol/L (135-145)
[2020-01-05 05:56] LABS: SLIDE REVIEW VERIFIED
--- NOTE | 2020-01-05 08:07 | XR_ITS ---
EXAMINATION: XR CHEST CLINICAL INFORMATION: Orogastric tube placement COMPARISON: 01/04/2020 TECHNIQUE: Frontal view of the chest was obtained. FINDINGS: Endotracheal tube terminates 4.5 cm above the luci. Enteric tube courses into the stomach. Right internal jugular central venous catheter terminates at the superior cavoatrial junction. No pneumothorax. Bilateral diffuse pulmonary parenchymal opacities redemonstrated without significant change from the prior. No pneumothorax. No pleural effusion. XR/XR chest 1V IMPRESSION: Lines and tubes as above. Stable appearing bilateral multifocal pulmonary parenchymal opacities.
[2020-01-05] MEDS: Digoxin 0.5 MG/2 ML AMPUL 0.25 MG IVPUSH (08:36)
[2020-01-05] MEDS: Metoprolol Tartrate 5 MG/5 ML VIAL IVPUSH (08:37)
[2020-01-05] MEDS: Furosemide 40 MG/4 ML VIAL IVPUSH (08:37)
[2020-01-05] MEDS: Potassium Chloride Packet 20 MEQ PACKET 40 MEQ PO (08:37)
[2020-01-05 08:54] LABS: Partial Thromboplastin Time 33.6 SEC (24.1-38.0)
[2020-01-05 08:55] LABS: Fibrinogen > 700 MG/DL (259-690)
[2020-01-05] MEDS: Midazolam HCl/PF 2 MG/2 ML VIAL IVPUSH (09:26)
[2020-01-05] MEDS: propofoL 1,000 MG/100 ML VIAL 22.38 MG IVCONT (09:40)
[2020-01-05] MEDS: Midazolam HCl/NS 50 MG/50 ML PLAST..BAG IVCONT ×2 (10:30→13:03)
--- NOTE | 2020-01-05 10:37 | PM.CNGS ---
History of Present Illness Consult details Consult date: 01/05/20 Narrative: 84M admitted to the ICU yesterday for COVID pneumonia, referred to me for a stoma prolapse. He was brought to the ED yesterday for shortness of breath. He was diagnosed to have COVID pneumonia and was admitted to the ICU with noninvasive positive pressure ventilation. He eventually required intubation over the night for respiratory failure. He has a stoma on the left side and this was noticed to prolapse so I was consulted. The patient is currently on the ventilator so the history was based on discussion with the Internet Network Specialist and on review of records. Review of Systems Constitutional: Constitutional: Denies headache(s) and Denies weakness ENT: Denies dizziness and Denies headache(s) Cardiovascular: Cardiovascular: Denies chest pain and Reports dyspnea Respiratory: Respiratory: Reports cough and Reports dyspnea Gastrointestinal: Gastrointestinal: Denies abdominal pain Genitourinary: Genitourinary: Denies difficulty urinating Musculoskeletal: Musculoskeletal: Denies numbness and Denies tingling Neurologic: Reports system reviewed and no additional complaints, except as documented, Denies Abnormal speech present, Denies dizziness, Denies headache(s), Denies numbness, Denies tingling and Denies weakness PMF Past Medical History Medical History (Updated 01/05/20 @ 12:20 by Micky Shah MD) A-fib Colostomy in place COPD (chronic obstructive pulmonary disease) Coronary artery disease DVT (deep venous thrombosis) High cholesterol Hypertension Osteoarthritis Prolapse of stoma Pulmonary embolism Surgical History Surgical History (Updated 01/04/20 @ 13:51 by Maggi Workman NP) H/O heart artery stent Social History Social History Household Members: None Housing: House Do you presently have visiting nurse or other home services: No Alcohol intake: never Smoking Status: Former smoker Tobacco Type: Cigarette Years Smoked: NO Smoked in Last 30 Days: No Smoking Quit Date: 1987 Use of substances other than those prescribed or required for medical reasons: No Have you been hit, kicked, punched, or otherwise hurt by someone within the past year? If so, by whom?: No Do you feel safe in your current relationship?: No Is there a partner from a previous relationship who is making you feel unsafe now?: No Are you made to feel afraid or neglected: No Spiritual Healthcare Practices: [facility] Advance Directives: No Advance Directives Information Provided: No Advance Directives on File: No Do you have thoughts of harming others: None Do you have a plan to hurt others: No Plan Recently lost weight without trying: No Meds Allergies Allergy/AdvReac Type Severity Reaction Status Date / Time No Known Allergies Allergy Mild NO Verified 01/02/20 13:09 Home Medications Medication Instructions Recorded Confirmed Type amlodipine 1 tab PO DAILY 01/04/20 01/04/20 History atorvastatin 1 tab PO DAILY 01/04/20 01/04/20 History furosemide 1 tab PO DAILY 01/04/20 01/04/20 History gabapentin 1 cap PO TID 01/04/20 01/04/20 History gabapentin 1 cap PO TID 01/04/20 01/04/20 History levothyroxine 1 tab PO Q OTHER DAY 01/04/20 01/04/20 History lisinopril 1 tab PO DAILY 01/04/20 01/04/20 History metoprolol succinate 1 tab PO DAILY 01/04/20 01/04/20 History tamsulosin 1 cap PO DAILY 01/04/20 01/04/20 History tamsulosin 1 cap PO DAILY 01/04/20 01/04/20 History warfarin 1 tab PO DAILY 01/04/20 01/04/20 History Physical Exam Vital Signs: Vital Signs: Vital Signs Temp Pulse Resp BP Pulse Ox 01/05/20 09:00 97.5 F 131 H 28 H 156/86 H 92 01/05/20 08:37 117 H 177/79 H 01/05/20 08:36 115 H 01/05/20 08:00 98.1 F 116 H 17 114/84 98 01/05/20 07:00 98.1 F 79 35 H 137/74 92 01/05/20 06:12 98.1 F 72 27 H 136/75 92 01/05/20 05:00 98.1 F 77 36 H 129/71 90 L 01/05/20 04:01 37 H 01/05/20 04:00 75 27 H 125/70 91 L 01/05/20 03:00 98.7 F 76 30 H 137/72 92 01/05/20 02:00 98.4 F 83 39 H 136/76 92 01/05/20 01:30 ED T 98.4 F 90 28 H 120/66 01/05/20 00:50 98.2 F 72 44 H 119/70 91 L 01/04/20 23:59 98.4 F 90 33 H 92 01/04/20 23:54 32 H 01/04/20 23:50 98.4 F 90 28 H 120/66 01/04/20 23:37 98.6 F 88 32 H 126/78 01/04/20 23:09 88 01/04/20 23:00 98.8 F 88 34 H 126/78 92 01/04/20 22:00 98.8 F 97 28 H 132/82 94 01/04/20 21:00 99.3 F 98 27 H 122/77 92 01/04/20 20:40 20 01/04/20 20:00 99.3 F 112 H 26 H 130/66 94 01/04/20 19:55 112 H 01/04/20 18:27 101 H 16 119/70 98 01/04/20 16:50 98 125/59 L 01/04/20 14:25 120 H 30 H 90 L 01/04/20 13:50 30 H 01/04/20 13:45 100 126/69 01/04/20 13:19 98.7 F 102 H 45 H 135/74 87 L 01/04/20 13:15 111 H 135/74 Body Mass Index 26.5 Const: Other: intubated, on ventilator, not communicative Cardio: Rhythm: regular rhythm GI: Other: soft, no guarding or rebound, nondistended, stoma with long prolapse, no erythema or ischemia, healthy looking, easily reduced Neuro: Speech: No Abnormal speech present Results Labs Result diagrams: 01/05/20 05:13 01/05/20 05:13 Labs: Abnormal lab results 01/04/20 01/04/20 01/04/20 Range/Units 14:13 14:13 14:13 RBC (4.60-5.80) X10*6/uL Hgb (14.0-18.0) g/dl Hct (42-52) % MCH (27.0-33.0) pg RDW (11.0-16.0) % MPV (9.4-12.4) fL Immature Gran % (Auto) (0.0-0.4) % Neut % (Auto) (45-73) % Lymph % (Auto) (20-40) % Lymph # (Auto) (1.2-4.9) X10*3/uL Abs Immat Gran (auto) (0.00-0.03) X10*3/uL PT 28.7 H (10.8-13.0) SEC INR 2.4 H (0.9-1.1) Fibrinogen (259-690) MG/DL ABG pH (7.35-7.45) ABG pCO2 (32-45) mmhg ABG pO2 (83-108) mmhg ABG HCO3 (22-26) mmol/l VBG pH (7.32-7.43) Potassium 3.0 L (3.3-5.1) mmol/l Chloride (96-108) mmol/L Carbon Dioxide 19 L (22-29) mmol/L BUN 18 H (9-16) mg/dL Random Glucose 172 H (60-115) mg/dL Lactic Acid 2.8 H* (0.5-2.0) mmol/L Lactic Acid Fup @ 2Hr (0.5-2.0) mmol/L Lactic Acid Fup @ 4Hr (0.5-2.0) mmol/L Calcium 7.4 L (8.4-10.2) mg/dL Magnesium 3.3 H (1.6-2.6) mg/dL Total Bilirubin 1.4 H (0.0-1.0) mg/dL Direct Bilirubin 0.7 H (0.0-0.5) mg/dL Alkaline Phosphatase 127 H (39-117) U/L Lactate Dehydrogenase (118-273) U/L B-Natriuretic Peptide (<100) pg/mL Total Protein 6.1 L (6.5-8.0) g/dL Albumin 3.1 L (3.5-5.0) g/dL Urine Protein (NEG-TRACE) MG/DL Coronavirus (PCR) (Negative) 01/04/20 01/04/20 01/04/20 Range/Units 14:13 14:14 14:14 RBC 4.16 L (4.60-5.80) X10*6/uL Hgb 11.2 L (14.0-18.0) g/dl Hct 35.9 L (42-52) % MCH 26.9 L (27.0-33.0) pg RDW 16.2 H (11.0-16.0) % MPV 9.1 L (9.4-12.4) fL Immature Gran % (Auto) 0.6 H (0.0-0.4) % Neut % (Auto) 92.7 H (45-73) % Lymph % (Auto) 4.4 L (20-40) % Lymph # (Auto) 0.3 L (1.2-4.9) X10*3/uL Abs Immat Gran (auto) 0.04 H (0.00-0.03) X10*3/uL PT (10.8-13.0) SEC INR (0.9-1.1) Fibrinogen (259-690) MG/DL ABG pH (7.35-7.45) ABG pCO2 (32-45) mmhg ABG pO2 (83-108) mmhg ABG HCO3 (22-26) mmol/l VBG pH (7.32-7.43) Potassium (3.3-5.1) mmol/l Chloride (96-108) mmol/L Carbon Dioxide (22-29) mmol/L BUN (9-16) mg/dL Random Glucose (60-115) mg/dL Lactic Acid (0.5-2.0) mmol/L Lactic Acid Fup @ 2Hr (0.5-2.0) mmol/L Lactic Acid Fup @ 4Hr (0.5-2.0) mmol/L Calcium (8.4-10.2) mg/dL Magnesium (1.6-2.6) mg/dL Total Bilirubin (0.0-1.0) mg/dL Direct Bilirubin (0.0-0.5) mg/dL Alkaline Phosphatase (39-117) U/L Lactate Dehydrogenase 470 H (118-273) U/L B-Natriuretic Peptide 478 H (<100) pg/mL Total Protein (6.5-8.0) g/dL Albumin (3.5-5.0) g/dL Urine Protein (NEG-TRACE) MG/DL Coronavirus (PCR) (Negative) 01/04/20 01/04/20 01/04/20 Range/Units 14:15 15:09 17:08 RBC (4.60-5.80) X10*6/uL Hgb (14.0-18.0) g/dl Hct (42-52) % MCH (27.0-33.0) pg RDW (11.0-16.0) % MPV (9.4-12.4) fL Immature Gran % (Auto) (0.0-0.4) % Neut % (Auto) (45-73) % Lymph % (Auto) (20-40) % Lymph # (Auto) (1.2-4.9) X10*3/uL Abs Immat Gran (auto) (0.00-0.03) X10*3/uL PT (10.8-13.0) SEC INR (0.9-1.1) Fibrinogen (259-690) MG/DL ABG pH 7.49 H (7.35-7.45) ABG pCO2 28 L (32-45) mmhg ABG pO2 59 L (83-108) mmhg ABG HCO3 21 L (22-26) mmol/l VBG pH (7.32-7.43) Potassium (3.3-5.1) mmol/l Chloride (96-108) mmol/L Carbon Dioxide (22-29) mmol/L BUN (9-16) mg/dL Random Glucose (60-115) mg/dL Lactic Acid (0.5-2.0) mmol/L Lactic Acid Fup @ 2Hr (0.5-2.0) mmol/L Lactic Acid Fup @ 4Hr (0.5-2.0) mmol/L Calcium (8.4-10.2) mg/dL Magnesium (1.6-2.6) mg/dL Total Bilirubin (0.0-1.0) mg/dL Direct Bilirubin (0.0-0.5) mg/dL Alkaline Phosphatase (39-117) U/L Lactate Dehydrogenase (118-273) U/L B-Natriuretic Peptide (<100) pg/mL Total Protein (6.5-8.0) g/dL Albumin (3.5-5.0) g/dL Urine Protein 1+ H (NEG-TRACE) MG/DL Coronavirus (PCR) POSITIVE A (Negative) 01/04/20 01/04/20 01/05/20 Range/Units 19:43 22:15 05:00 RBC (4.60-5.80) X10*6/uL Hgb (14.0-18.0) g/dl Hct (42-52) % MCH (27.0-33.0) pg RDW (11.0-16.0) % MPV (9.4-12.4) fL Immature Gran % (Auto) (0.0-0.4) % Neut % (Auto) (45-73) % Lymph % (Auto) (20-40) % Lymph # (Auto) (1.2-4.9) X10*3/uL Abs Immat Gran (auto) (0.00-0.03) X10*3/uL PT (10.8-13.0) SEC INR (0.9-1.1) Fibrinogen (259-690) MG/DL ABG pH (7.35-7.45) ABG pCO2 (32-45) mmhg ABG pO2 (83-108) mmhg ABG HCO3 (22-26) mmol/l VBG pH 7.49 H (7.32-7.43) Potassium (3.3-5.1) mmol/l Chloride (96-108) mmol/L Carbon Dioxide (22-29) mmol/L BUN (9-16) mg/dL Random Glucose (60-115) mg/dL Lactic Acid (0.5-2.0) mmol/L Lactic Acid Fup @ 2Hr 2.8 H* (0.5-2.0) mmol/L Lactic Acid Fup @ 4Hr 2.4 H* (0.5-2.0) mmol/L Calcium (8.4-10.2) mg/dL Magnesium (1.6-2.6) mg/dL Total Bilirubin (0.0-1.0) mg/dL Direct Bilirubin (0.0-0.5) mg/dL Alkaline Phosphatase (39-117) U/L Lactate Dehydrogenase (118-273) U/L B-Natriuretic Peptide (<100) pg/mL Total Protein (6.5-8.0) g/dL Albumin (3.5-5.0) g/dL Urine Protein (NEG-TRACE) MG/DL Coronavirus (PCR) (Negative) 01/05/20 01/05/20 01/05/20 Range/Units 05:13 05:13 05:13 RBC 3.85 L (4.60-5.80) X10*6/uL Hgb 10.5 L (14.0-18.0) g/dl Hct 33.6 L (42-52) % MCH (27.0-33.0) pg RDW 16.1 H (11.0-16.0) % MPV (9.4-12.4) fL Immature Gran % (Auto) 0.5 H (0.0-0.4) % Neut % (Auto) 94.5 H (45-73) % Lymph % (Auto) 2.6 L (20-40) % Lymph # (Auto) 0.2 L (1.2-4.9) X10*3/uL Abs Immat Gran (auto) (0.00-0.03) X10*3/uL PT 24.1 H (10.8-13.0) SEC INR 2.0 H (0.9-1.1) Fibrinogen (259-690) MG/DL ABG pH (7.35-7.45) ABG pCO2 (32-45) mmhg ABG pO2 (83-108) mmhg ABG HCO3 (22-26) mmol/l VBG pH (7.32-7.43) Potassium (3.3-5.1) mmol/l Chloride 110 H (96-108) mmol/L Carbon Dioxide (22-29) mmol/L BUN 17 H (9-16) mg/dL Random Glucose 155 H (60-115) mg/dL Lactic Acid (0.5-2.0) mmol/L Lactic Acid Fup @ 2Hr (0.5-2.0) mmol/L Lactic Acid Fup @ 4Hr (0.5-2.0) mmol/L Calcium 7.5 L (8.4-10.2) mg/dL Magnesium (1.6-2.6) mg/dL Total Bilirubin (0.0-1.0) mg/dL Direct Bilirubin (0.0-0.5) mg/dL Alkaline Phosphatase (39-117) U/L Lactate Dehydrogenase (118-273) U/L B-Natriuretic Peptide (<100) pg/mL Total Protein (6.5-8.0) g/dL Albumin 3.1 L (3.5-5.0) g/dL Urine Protein (NEG-TRACE) MG/DL Coronavirus (PCR) (Negative) 01/05/20 Range/Units 08:33 RBC (4.60-5.80) X10*6/uL Hgb (14.0-18.0) g/dl Hct (42-52) % MCH (27.0-33.0) pg RDW (11.0-16.0) % MPV (9.4-12.4) fL Immature Gran % (Auto) (0.0-0.4) % Neut % (Auto) (45-73) % Lymph % (Auto) (20-40) % Lymph # (Auto) (1.2-4.9) X10*3/uL Abs Immat Gran (auto) (0.00-0.03) X10*3/uL PT (10.8-13.0) SEC INR (0.9-1.1) Fibrinogen > 700 H (259-690) MG/DL ABG pH (7.35-7.45) ABG pCO2 (32-45) mmhg ABG pO2 (83-108) mmhg ABG HCO3 (22-26) mmol/l VBG pH (7.32-7.43) Potassium (3.3-5.1) mmol/l Chloride (96-108) mmol/L Carbon Dioxide (22-29) mmol/L BUN (9-16) mg/dL Random Glucose (60-115) mg/dL Lactic Acid (0.5-2.0) mmol/L Lactic Acid Fup @ 2Hr (0.5-2.0) mmol/L Lactic Acid Fup @ 4Hr (0.5-2.0) mmol/L Calcium (8.4-10.2) mg/dL Magnesium (1.6-2.6) mg/dL Total Bilirubin (0.0-1.0) mg/dL Direct Bilirubin (0.0-0.5) mg/dL Alkaline Phosphatase (39-117) U/L Lactate Dehydrogenase (118-273) U/L B-Natriuretic Peptide (<100) pg/mL Total Protein (6.5-8.0) g/dL Albumin (3.5-5.0) g/dL Urine Protein (NEG-TRACE) MG/DL Coronavirus (PCR) (Negative) Short CBC 01/04/20 01/05/20 Range/Units 14:14 05:13 WBC 6.6 6.7 (4.8-10.8) X10*3/uL Hgb 11.2 L 10.5 L (14.0-18.0) g/dl Hct 35.9 L 33.6 L (42-52) % Plt Count 283 250 (160-400) X10*3/uL BMP 01/04/20 01/05/20 14:13 05:13 Sodium 141 144 Potassium 3.0 L 3.4 Chloride 108 110 H Carbon Dioxide 19 L 22 BUN 18 H 17 H Creatinine 0.90 0.83 Calcium 7.4 L 7.5 L Cardiac Enzymes 01/04/20 Range/Units 14:13 Total Creatine Kinase 106 (38-174) U/L Liver Function 01/04/20 01/05/20 Range/Units 14:13 05:13 Total Bilirubin 1.4 H (0.0-1.0) mg/dL Direct Bilirubin 0.7 H (0.0-0.5) mg/dL AST 20 (5-37) U/L ALT 10 (0-40) U/L Alkaline Phosphatase 127 H (39-117) U/L Albumin 3.1 L 3.1 L (3.5-5.0) g/dL Urine 01/04/20 Range/Units 17:08 Urine Color YELLOW Urine Appearance CLEAR Urine pH 5.5 (5.0-8.0) Ur Specific Red Level 1.025 (1.005-1.025) Urine Protein 1+ H (NEG-TRACE) MG/DL Urine Glucose (UA) NEG (NEG) MG/DL All other labs normal. Assessment and Plan (1) Prolapse of stoma: Status: Acute 84M in the ICU for COVID pneumonia with respiratory failure, with a prolapsing stoma, long, about 7 cm. This is easily reduced without difficulty. There is no evidence of ischemia. The abdomen is very benign on exam. Because of positive pressure ventilation, the stoma will likely prolapse periodically, but at this time, does not require any surgical intervention. Elective repair which will require resection and revision may be discussed with the patient and his family down the line after his acute issues are resolved. I have discussed the above with the financial services counselor. I will follow the patient while he is in the hospital. I was able to discuss his hx with his sonperlita Mcclellan. The pt had distal colon resection with an endcolostomy in [facility] in 2007 for colon cancer. He has had periodic prolapse of his stoma for many years.
--- NOTE | 2020-01-05 12:39 | PC.NURSE ---
CVP OF 5-6
[2020-01-05] MEDS: propofoL 1,000 MG/100 ML VIAL 8.95 MG IVCONT ×2 (13:02→23:51)
[2020-01-05] MEDS: Chlorhexidine Gluc Oral Rinse 15 ML MOUTHWASH BUCCAL ×2 (13:02→20:37)
--- NOTE | 2020-01-05 13:31 | PC.NURSE ---
SE BECOMING HYPOTHERMIC TEMP 95.9 SO CORE TEMP AFIB INITIALLY RAPID AFIB, NOW AFIB PAUL RATE LOW 44 LEVOPHED TITRATED SEVERAL TIMES PT RATHER SENSITIVE TO CHANGES PRESENTLY AT 0.06MCG/KG/MIN WEIGHT OF 75KG SEDATED AND VENTED THIS AM PROPOFOL, ROCURONIUM, VERSED VENTED AC SETTINGS O2 TITRATED TO 60% CXR DONE AFTER TLC PLACEMENT POTASSIUM REPLACMENT GIVEN FOR K OF 3.4
--- NOTE | 2020-01-05 14:30 | W.PM.CCHP ---
Procedures Central Line Placement Right IJ: Central Line Comments: after sterile preparation and draping and utilizing ultrasound guidance gained very easy entry into the right internal jugular vein passing retrograde with Seldinger technique AJ tipped guidewire to the right atrium over which a triple-lumen central venous pressure catheter with for CVP measurement 5 mm mercury Consent for Procedure: Emergent-no informed consent obtained Time out performed: Yes Sterile Technique Used: Yes Patient placed on monitor/pulse ox: Yes prep: mask, gown and gloves Central line prep: Chlorhexidine scrub Local anesthesia used: lidocaine 1% Ultrasound used for placement: Yes Central line lumen inserted: triple Post procedure: sutured in place, good blood return, all ports aspirated, flushed, capped and sterile dressing applied Post procedure x-ray: tip of catheter in good position and no pneumothorax seen Patient tolerated procedure: well and no complications Complications: none
--- NOTE | 2020-01-05 14:33 | P.PCNCC_ITS ---
Procedures Intubation Intubation Comments: discussed with patient due to significant work of breathing on to support modalities and because of co associated congestive heart failure and with patient's consent and subsequent discussion with family endotracheal intubation was performed with confirmation by good bilateral breath sounds as well as good end-tidal CO2 response and excellent visualization of vocal cords with the use of glide scope OG tube was then placed and all positions were excellent confirmed by chest x- ray with no complication Consent for Procedure: Elective - informed consent obtained Time out performed: Yes Sedative: propofol Paralytic: rocuronium Mg given: 40 Laryngoscope: fiber optic video scope ET tube size: 7.5 ET tube uncuffed: No Tube secured depth (cm): 23 Tube secured location: lips Tube placement confirmation: visualized tube passing through cords, equal breath sounds bilaterally and confirmation by capnometry Patient tolerated procedure: well and no complications Intubation complications: none
--- NOTE | 2020-01-05 14:36 | PM.CCPN ---
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 from his congestive cardiomyopathy with bedside echo indicating 40% ejection fraction evidence of elevated biventricular filling pressures and no primary valve or pericardial disease for the management of his cardiac issues central line for CVP placement and central venous gas monitoring was placed and elective intubation after discussion with the patient for support of his LV function in this high output failure state Physical Exam Vital Signs: Vital Signs: Vital Signs Temp Pulse Resp BP Pulse Ox 01/05/20 14:00 96.1 F L 74 25 H 149/79 H 98 01/05/20 13:00 95.9 F L 72 22 H 155/73 H 98 01/05/20 12:00 96.1 F L 63 24 H 154/55 H 96 01/05/20 11:00 96.1 F L 89 18 88/57 L 96 01/05/20 10:00 97.2 F 106 H 20 79/43 L 90 L 01/05/20 09:00 97.5 F 131 H 28 H 156/86 H 92 01/05/20 08:37 117 H 177/79 H 01/05/20 08:36 115 H 01/05/20 08:00 98.1 F 116 H 17 114/84 98 01/05/20 07:00 98.1 F 79 35 H 137/74 92 01/05/20 06:12 98.1 F 72 27 H 136/75 92 01/05/20 05:00 98.1 F 77 36 H 129/71 90 L 01/05/20 04:01 37 H 01/05/20 04:00 75 27 H 125/70 91 L 01/05/20 03:00 98.7 F 76 30 H 137/72 92 01/05/20 02:00 98.4 F 83 39 H 136/76 92 01/05/20 01:30 ED T 98.4 F 90 28 H 120/66 01/05/20 00:50 98.2 F 72 44 H 119/70 91 L 01/04/20 23:59 98.4 F 90 33 H 92 01/04/20 23:54 32 H 01/04/20 23:50 98.4 F 90 28 H 120/66 01/04/20 23:37 98.6 F 88 32 H 126/78 01/04/20 23:09 88 01/04/20 23:00 98.8 F 88 34 H 126/78 92 01/04/20 22:00 98.8 F 97 28 H 132/82 94 01/04/20 21:00 99.3 F 98 27 H 122/77 92 01/04/20 20:40 20 01/04/20 20:00 99.3 F 112 H 26 H 130/66 94 01/04/20 19:55 112 H 01/04/20 18:27 101 H 16 119/70 98 01/04/20 16:50 98 125/59 L Body Mass Index 26.5 Const: Other: he was awake and alert now sedated intubated he participated in decision for ventilator support and was neurologically intact skin intact with no livedo no acrocyanosis and no decubiti I he has reduced bilateral carotid upstrokes but palpable and no neck vein distension and initial CVP measured 5 cardiac exam with normal S1 and normal S2 there is a systolic murmur for probably hemodynamically noncritical aortic stenosis chest with bilateral rales abdomen a has a low left lower quadrant colostomy and 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 but the tissue appears to be pink atrial fibrillation Objective Data Labs CBC & Chem 7: 01/05/20 05:13 01/05/20 05:13 Labs: Laboratory Results - last 24 hr 01/04/20 01/04/20 01/04/20 14:13 14:13 15:09 WBC RBC Hgb Hct MCV MCH MCHC RDW Plt Count MPV Immature Gran % (Auto) Neut % (Auto) Lymph % (Auto) [place] % (Auto) Eos % (Auto) Baso % (Auto) Lymph # (Auto) [place] # (Auto) Eos # (Auto) Baso # (Auto) Abs Immat Gran (auto) Absolute Neuts (auto) Absolute Nucleated RBC Nucleated RBC % (auto) Smear Tech's Comments PT INR APTT Fibrinogen D-Dimer 1796 VBG pH VBG pCO2 VBG Oxygen Liters/Min VBG pO2 VBG HCO3 VBG O2 Saturation VBG Base Excess Sodium Potassium Chloride Carbon Dioxide Anion Gap BUN Creatinine Estim Creat Clear Calc Estimated GFR Random Glucose Lactic Acid Fup @ 2Hr Lactic Acid Fup @ 4Hr Calcium Phosphorus Magnesium Total Creatine Kinase 106 Albumin Urine Color Urine Appearance Urine pH Ur Specific [place] Urine Protein Urine Glucose (UA) Urine Ketones Urine Blood Urine Nitrite Ur Leukocyte Esterase Urine RBC Urine WBC Ur Squamous Epith Cells Urine Bacteria Hyaline Casts Urine Mucus Coronavirus (PCR) POSITIVE A Blood Type Antibody Screen 01/04/20 01/04/20 01/04/20 17:08 19:43 19:43 WBC RBC Hgb Hct MCV MCH MCHC RDW Plt Count MPV Immature Gran % (Auto) Neut % (Auto) Lymph % (Auto) [place] % (Auto) Eos % (Auto) Baso % (Auto) Lymph # (Auto) [place] # (Auto) Eos # (Auto) Baso # (Auto) Abs Immat Gran (auto) Absolute Neuts (auto) Absolute Nucleated RBC Nucleated RBC % (auto) Smear Tech's Comments PT INR APTT Fibrinogen D-Dimer VBG pH VBG pCO2 VBG Oxygen Liters/Min VBG pO2 VBG HCO3 VBG O2 Saturation VBG Base Excess Sodium Potassium Chloride Carbon Dioxide Anion Gap BUN Creatinine Estim Creat Clear Calc Estimated GFR Random Glucose Lactic Acid Fup @ 2Hr 2.8 H* Lactic Acid Fup @ 4Hr Calcium Phosphorus Magnesium Total Creatine Kinase Albumin Urine Color YELLOW Urine Appearance CLEAR Urine pH 5.5 Ur Specific [place] 1.025 Urine Protein 1+ H Urine Glucose (UA) NEG Urine Ketones NEG Urine Blood TRACE Urine Nitrite NEG Ur Leukocyte Esterase NEG Urine RBC 1-4 Urine WBC 0 Ur Squamous Epith Cells TRACE Urine Bacteria NONE Hyaline Casts 0-2 Urine Mucus TRACE Coronavirus (PCR) Blood Type O Positive Antibody Screen NEGATIVE 01/04/20 01/05/20 01/05/20 22:15 05:00 05:13 WBC RBC Hgb Hct MCV MCH MCHC RDW Plt Count MPV Immature Gran % (Auto) Neut % (Auto) Lymph % (Auto) [place] % (Auto) Eos % (Auto) Baso % (Auto) Lymph # (Auto) [place] # (Auto) Eos # (Auto) Baso # (Auto) Abs Immat Gran (auto) Absolute Neuts (auto) Absolute Nucleated RBC Nucleated RBC % (auto) Smear Tech's Comments PT 24.1 H INR 2.0 H APTT Fibrinogen D-Dimer VBG pH 7.49 H VBG pCO2 31 VBG Oxygen Liters/Min Not Reportable VBG pO2 45 VBG HCO3 23 VBG O2 Saturation 81.4 VBG Base Excess 0.3 Sodium Potassium Chloride Carbon Dioxide Anion Gap BUN Creatinine Estim Creat Clear Calc Estimated GFR Random Glucose Lactic Acid Fup @ 2Hr Lactic Acid Fup @ 4Hr 2.4 H* Calcium Phosphorus Magnesium Total Creatine Kinase Albumin Urine Color Urine Appearance Urine pH Ur Specific [place] Urine Protein Urine Glucose (UA) Urine Ketones Urine Blood Urine Nitrite Ur Leukocyte Esterase Urine RBC Urine WBC Ur Squamous Epith Cells Urine Bacteria Hyaline Casts Urine Mucus Coronavirus (PCR) Blood Type Antibody Screen 01/05/20 01/05/20 01/05/20 05:13 05:13 08:33 WBC 6.7 RBC 3.85 L Hgb 10.5 L Hct 33.6 L MCV 87.3 MCH 27.3 MCHC 31.3 RDW 16.1 H Plt Count 250 MPV 9.6 Immature Gran % (Auto) 0.5 H Neut % (Auto) 94.5 H Lymph % (Auto) 2.6 L [place] % (Auto) 2.4 Eos % (Auto) 0.0 Baso % (Auto) 0.0 Lymph # (Auto) 0.2 L [place] # (Auto) 0.2 Eos # (Auto) 0.0 Baso # (Auto) 0.0 Abs Immat Gran (auto) 0.03 Absolute Neuts (auto) 6.3 Absolute Nucleated RBC 0.000 Nucleated RBC % (auto) 0.0 Smear Tech's Comments VERIFIED PT INR APTT 33.6 Fibrinogen > 700 H D-Dimer VBG pH VBG pCO2 VBG Oxygen Liters/Min VBG pO2 VBG HCO3 VBG O2 Saturation VBG Base Excess Sodium 144 Potassium 3.4 Chloride 110 H Carbon Dioxide 22 Anion Gap 15 BUN 17 H Creatinine 0.83 Estim Creat Clear Calc 60.8 Estimated GFR > 60 Random Glucose 155 H Lactic Acid Fup @ 2Hr Lactic Acid Fup @ 4Hr Calcium 7.5 L Phosphorus 2.9 Magnesium 2.1 Total Creatine Kinase Albumin 3.1 L Urine Color Urine Appearance Urine pH Ur Specific [place] Urine Protein Urine Glucose (UA) Urine Ketones Urine Blood Urine Nitrite Ur Leukocyte Esterase Urine RBC Urine WBC Ur Squamous Epith Cells Urine Bacteria Hyaline Casts Urine Mucus Coronavirus (PCR) Blood Type Antibody Screen Progress Note: A&P Assessment and plan (1) Colostomy in place: Status: Acute (2) Prolapse of stoma: Status: Acute (3) Acute respiratory failure with hypoxia: Status: Acute (4) COVID-19: Status: Acute (5) CHF (congestive heart failure): Status: Acute (6) Pneumonia: Status: Acute (7) Elevated lactic acid level: Status: Acute (8) D-dimer, elevated: Status: Acute (9) Elevated troponin: Status: Acute (10) Acute hypokalemia: Status: Acute (11) Hypocalcemia: Status: Acute (12) Current use of anticoagulant therapy: Status: Acute (13) Acute on chronic systolic and diastolic heart failure, NYHA class 2: Status: Acute Assessment and Plan: so he has received convalescent plasma and remdesivir has been initiated and for his cardiac support he was intubated with central line placement to manage fluids and OG placement to start him on feedings and I think I will maintain his Coumadin with today's INR being 2 and will now add Decadron in the last 30 hours he has received a total of 0.75 mg of IV digoxin and required just 1 5 mg dose of IV metoprolol for heart rate control when he became rapid shortly after use of rocuronium and this went without complication Time Spent With Patient Time: Total time spent is greater than 50% in coordination of care (as documented) at patient's floor/unit and/or counseling patient: Total time spent with greater than 50% in coordination of care (as documented) at patient's floor/unit and/or counseling patient:: 75
[2020-01-05] MEDS: Pantoprazole Sodium 40 MG/10 ML VIAL IVPUSH (15:25)
[2020-01-05] MEDS: Warfarin Sodium 2.5 MG TABLET PO (18:32)
[2020-01-05] MEDS: KCl 10 mEq in 5% Dex/0.45% Sod 10 MEQ/1,000 ML IV.SOLN 42 MEQ IVCONT (18:32)
[2020-01-05] MEDS: Remdesivir 100 MG in 0.9 % Sodium Chloride 230 ML 125 MG IV (18:32)
[2020-01-05] MEDS: dexAMETHasone sod phosphate 4 MG/ML VIAL IVPUSH (20:37)
[2020-01-06] VITALS (11 sets, daily range): BP systolic 83–150; BP diastolic 57–86; PULSE 62–110; RESP 21–36; TEMP 36.3–37.1; O2SAT 90–97; BMI 27.0
[2020-01-06 04:32] LABS: SARS COV2 IgG Positive (Negative)
[2020-01-06] MEDS: Pantoprazole Sodium 40 MG/10 ML VIAL IVPUSH (05:45)
[2020-01-06 05:53] LABS: Basophils Percent Auto 0.1 % (0-2); Hemoglobin 12.5 g/dl (14.0-18.0); Imm Gran Abs Auto 0.19 X10*3/uL (0.00-0.03); Imm Gran Pct Auto 1.2 % (0.0-0.4); Lymphocytes Absolute Auto 0.2 X10*3/uL (1.2-4.9); Lymphocytes Percent Auto 1.5 % (20-40); MANUAL DIFF FLAG SCAN; Mean Corpuscular HGB Conc 30.5 g/dl (31.0-36.0); Mean Corpuscular Hemoglobin 27.4 pg (27.0-33.0); Mean Corpuscular Volume 89.9 fL (80-98); Mean Platelet Volume 10.3 fL (9.4-12.4); Monocytes Absolute Auto 0.5 X10*3/uL (0.1-1.2); Monocytes Percent Auto 3.1 % (2-11); NRBC Pct Auto 0.3 /100WBC (0.0-0.2); Neutrophils Absolute Auto 14.8 X10*3/uL (2.0-8.3); Neutrophils Percent Auto 94.1 % (45-73); Platelet Count 181 X10*3/uL (160-400); Red Blood Count 4.56 X10*6/uL (4.60-5.80); Red Cell Distribution Width 16.5 % (11.0-16.0); SCAN SMEAR FLAG 1; White Blood Count 15.7 X10*3/uL (4.8-10.8)
[2020-01-06 05:59] LABS: Base Excess VBG -4.4 mmol/L; HCO3 VBG 22 mmol/L; Oxygen Saturation VBG 67.5 %; PCO2 VBG 43 mmhg; PO2 VBG 40 mmhg; pH VBG 7.32 (7.32-7.43)
[2020-01-06 06:18] LABS: Albumin Level 3.1 g/dL (3.5-5.0); Anion Gap 16 (12-20); Blood Urea Nitrogen 42 mg/dL (9-16); Carbon Dioxide 22 mmol/L (22-29); Chloride 110 mmol/L (96-108); Creatinine Clr Calc Pharmacy 25.7; Estimated Glomerular Filt Rate 33; Glucose Random 202 mg/dL (60-115); Magnesium 2.3 mg/dL (1.6-2.6); Phosphorus 3.3 mg/dL (2.7-4.5); Potassium 3.8 mmol/l (3.3-5.1); Sodium 144 mmol/L (135-145)
[2020-01-06] MEDS: dexAMETHasone sod phosphate 4 MG/ML VIAL IVPUSH (06:53)
[2020-01-06] MEDS: Chlorhexidine Gluc Oral Rinse 15 ML MOUTHWASH BUCCAL (06:53)
[2020-01-06] MEDS: propofoL 1,000 MG/100 ML VIAL 13.43 MG IVCONT (06:54)
--- NOTE | 2020-01-06 07:00 | MHC.PIE ---
P: Minimal urine output - 0-5ml/hr 11p-7a. I: [facility] [employer] made at start of shift, at approx midnight and continually as hourly output continued to be low - [facility] made Dr Bello aware in AM - ordered to increase IV fluids to 60ml/hr from 42ml/hr at approx 6am. E: CVP 6 to 3. No resp distress. Weight up to 76kg today - up from yesterday. Labs pending.
[2020-01-06 07:17] LABS: Fibrinogen 401 MG/DL (259-690); INTERNATIONAL NORM RATIO 2.3 (0.9-1.1); Prothrombin Time 27.9 SEC (10.8-13.0)
[2020-01-06 07:19] LABS: Partial Thromboplastin Time 34.8 SEC (24.1-38.0)
[2020-01-06] MEDS: HYDROmorphone HCl 1 MG/ML SYRINGE IVPUSH (07:20)
[2020-01-06 08:18] LABS: SLIDE REVIEW VERIFIED
--- NOTE | 2020-01-06 09:01 | PC.NURSE ---
Addendum entered by Jamil Ledezma RN 01/06/20 09:12: Tolerating tube feeds, up to max 50ml/hour Jevity. No output noted from colostomy. pink, moist, prolapsed. Original Note: Shift eval 11p-7a - Patient tolerating vent through night - on 20mcg/kg/min propofol. AC settings - see vent documentation. Scant clear secretions, minimal oral secretions. Afebrile. On low dose levophed. At 0630 sedation vacation - RR up to 40's, 02sat down to high 80's, 1mg IVP dilaudid ordered by Dr Box, given at 0710, max propofol running 50mcg. Increased FiO2 to 50% r/t O2sat down to 88% on 40%. Patient now sedated. Vitals stable.
--- NOTE | 2020-01-06 10:20 | PM.CNNEP ---
History of Present Illness Reason for Consult Reason for consult: VERITO Requesting physician: Virgil Box Chief Complaint Chief complaint: COVID PNA/CHF History of Present Illness Narrative: On vent and pressors Info obtained from [facility] UOP decr overnight approx 350 past 24 hrs and VERITO Adm with resp failure and COVID positive with makers of cytokine storm noted Review of Systems Constitutional: Denies headache(s) and Denies weakness Denies dizziness and Denies headache(s) Musculoskeletal: Denies numbness and Denies tingling Reports system reviewed and no additional complaints, except as documented, Denies dizziness, Denies headache(s), Denies numbness, Denies tingling and Denies weakness PMFSH Past Medical History Medical History (Updated 01/05/20 @ 14:40 by Maddie Bello MD) A-fib Acute on chronic systolic and diastolic heart failure, NYHA class [address] COPD (chronic obstructive pulmonary disease) Coronary artery disease DVT (deep venous thrombosis) High cholesterol Hypertension Osteoarthritis Prolapse of stoma Pulmonary embolism Surgical History Surgical History (Updated 01/04/20 @ 13:51 by Maggi Workman NP) H/O heart artery stent Social History Social History Household Members: None Housing: House Do you presently have visiting nurse or other home services: No Alcohol intake: never Smoking Status: Former smoker Tobacco Type: Cigarette Years Smoked: NO Smoked in Last 30 Days: No Smoking Quit Date: 1987 Use of substances other than those prescribed or required for medical reasons: No Currently Displaying Signs/Symptoms of Drug Intoxication Withdrawal: No Have you been hit, kicked, punched, or otherwise hurt by someone within the past year? If so, by whom?: No Do you feel safe in your current relationship?: No Is there a partner from a previous relationship who is making you feel unsafe now?: No Are you made to feel afraid or neglected: No Spiritual Healthcare Practices: TAOISM Advance Directives: No Advance Directives Information Provided: No Advance Directives on File: No Do you have thoughts of harming others: None Do you have a plan to hurt others: No Plan Recently lost weight without trying: No Meds Allergies Allergy/AdvReac Type Severity Reaction Status Date / Time No Known Allergies Allergy Mild NO Verified 01/02/20 13:09 Home Medications Medication Instructions Recorded Confirmed Type amlodipine 1 tab PO DAILY 01/04/20 01/04/20 History atorvastatin 1 tab PO DAILY 01/04/20 01/04/20 History furosemide 1 tab PO DAILY 01/04/20 01/04/20 History gabapentin 1 cap PO TID 01/04/20 01/04/20 History gabapentin 1 cap PO TID 01/04/20 01/04/20 History levothyroxine 1 tab PO Q OTHER DAY 01/04/20 01/04/20 History lisinopril 1 tab PO DAILY 01/04/20 01/04/20 History metoprolol succinate 1 tab PO DAILY 01/04/20 01/04/20 History tamsulosin 1 cap PO DAILY 01/04/20 01/04/20 History tamsulosin 1 cap PO DAILY 01/04/20 01/04/20 History warfarin 1 tab PO DAILY 01/04/20 01/04/20 History Physical Exam Vital Signs: Vital Signs Temp Pulse Resp BP Pulse Ox 01/06/20 10:00 98.8 F 110 H 26 H 83/57 L 90 L 01/06/20 08:57 98.6 F 109 H 23 H 106/67 92 01/06/20 07:35 98.2 F 107 H 26 H 146/84 H 92 01/06/20 07:00 97.3 F 109 H 21 H 135/76 91 L 01/06/20 06:00 98.1 F 89 36 H 138/74 93 01/06/20 05:00 97.7 F 78 31 H 144/76 H 94 01/06/20 04:00 97.3 F 88 31 H 150/82 H 97 01/06/20 03:00 97.5 F 73 26 H 142/68 H 97 01/06/20 02:00 97.5 F 64 24 H 136/77 97 01/06/20 01:00 97.3 F 62 22 H 137/86 97 01/05/20 23:47 97.3 F 63 23 H 159/75 H 97 01/05/20 22:58 97.3 F 67 22 H 145/79 H 97 01/05/20 22:00 97.2 F 69 25 H 130/77 96 01/05/20 21:00 97.2 F 57 25 H 156/78 H 95 01/05/20 19:52 97 F 64 23 H 137/66 97 01/05/20 19:00 96.4 F L 62 22 H 137/71 97 01/05/20 18:00 97 F 57 23 H 131/68 97 01/05/20 17:00 96.8 F 62 26 H 139/63 97 01/05/20 15:55 96.4 F L 71 26 H 137/78 97 01/05/20 15:48 96.4 F L 64 25 H 137/78 97 01/05/20 15:00 96.3 F L 63 26 H 148/74 H 98 01/05/20 14:00 96.1 F L 74 25 H 149/79 H 98 01/05/20 13:00 95.9 F L 72 22 H 155/73 H 98 01/05/20 12:00 96.1 F L 63 24 H 154/55 H 96 01/05/20 11:00 96.1 F L 89 18 88/57 L 96 Body Mass Index 27.0 Const Other: Resp Other: on vent Cardio Rate: tachycardic Rhythm: regular rhythm Peripheral pulses: Peripheral pulses 2+ throughout GI Other: soft, no guarding or rebound, nondistended, stoma with long prolapse, no erythema or ischemia, healthy looking, easily reduced Inspection: Yes normal to inspection Palpation (GI): Soft to palpation and nontender Auscultation: normal bowel sounds Neuro Gait exam (Neuro): Normal gait present Motor exam (neuro): 5/5 motor strength present throughout Extrem General: Yes normal to inspection Results Lab Results Result Diagrams: 01/06/20 05:38 01/06/20 05:38 Lab results: Chemistry 01/04/20 01/05/20 01/06/20 14:13 05:13 05:38 Sodium 141 144 144 Potassium 3.0 L 3.4 3.8 Carbon Dioxide 19 L 22 22 BUN 18 H 17 H 42 H D Creatinine 0.90 0.83 1.96 H Calcium 7.4 L 7.5 L 8.0 L Phosphorus 2.9 3.3 Hematology 01/04/20 01/05/20 01/06/20 14:14 05:13 05:38 WBC 6.6 6.7 15.7 H Hgb 11.2 L 10.5 L 12.5 L Plt Count 283 250 181 D Urinalysis 01/04/20 17:08 Urine Color YELLOW Urine Appearance CLEAR Urine pH 5.5 Ur Specific [place] 1.025 Urine Protein 1+ H Urine Glucose (UA) NEG Urine Ketones NEG Urine Blood TRACE Urine Nitrite NEG Ur Leukocyte Esterase NEG Urine RBC 1-4 Urine WBC 0 Ur Squamous Epith Cells TRACE Hyaline Casts 0-2 Assessment and Plan (1) Colostomy in place: Status: Acute (2) Prolapse of stoma: Status: Acute (3) Acute respiratory failure with hypoxia: Status: Acute (4) COVID-19: Status: Acute (5) CHF (congestive heart failure): Status: Acute (6) Pneumonia: Status: Acute (7) Elevated lactic acid level: Status: Acute (8) D-dimer, elevated: Status: Acute (9) Elevated troponin: Status: Acute (10) Acute hypokalemia: Status: Acute (11) Hypocalcemia: Status: Acute (12) Current use of anticoagulant therapy: Status: Acute (13) Acute on chronic systolic and diastolic heart failure, NYHA class 2: Status: Acute Oliguric VERITO in setting of COVID Resp failure cytokine storm req pressors...overall prognosis is very poor. Would rec IVF bolus but CVP is reported now > 15 and ICU re-evaluating his hypotension REC: if CVP accurate then hold IVF but if CVP not elevated then give IV NS bolus; at this time no indication for HD but may need to consider in next 12 to 24 hrs depending on clinical course Of note unclear if HD would be provide any realaitic benefit but will reasses later today as current crisis with drop in BP reassesed; also need to d/w son to what extent aggressive care inclkuding dialysis would be approrprita Case d/w Dr Box and will follow closely with ICU team
--- NOTE | 2020-01-06 10:27 | MHC.CLN ---
RECOMMEND CHANGING FORMULA TO PROMOTE AT MAX GOAL RATE 55CC/HR WITH 240CC FREE WATER Q 6HRS TO PROVIDE 1320KCALS (1901KCALS WITH SEDATION; 25KCALS/KG), 82.5G PROTEIN (1.08G/KG), 2067CC TOTAL WATER FROM FORMULA AND FLUSHES (27CC/KG) MONITOR LYTES SEE ALSO NUTRITION ASSESSMENT
--- NOTE | 2020-01-06 11:08 | PM.CCPN ---
Subjective Subjective Date of Service: 01/06/20 Interval History: Mr. Kenny was admitted to the ICU on Jan 03 with COVID-19 acute respiratory failure. The patient was an 84-year-old male with history of ischemic cardiomyopathy, hypertension, chronic atrial fibrillation anticoagulated on Coumadin, recent right lower extremity DVT and PE, osteoarthritis, and hyperlipidemia. The patient was inadvertently exposed to a number of individuals with Covid 19 on December 20. He subsequently tested positive. Over the last few days prior to admission, the patient started to develop shortness of breath and a dry cough. He had no fevers or chills or body aches or chest pain. He presented to the [place] ED on January 03. Room air saturation was in the high 70s with mild to moderate respiratory distress, with sat rising to the low 90s on non-rebreather face mask. Chest x-ray showed bilat multifocal pneumonia, R>L. The patient was admitted to the ICU for mx of bilat COVID pneumonia with acute resp failure. Bedside echo showed moderate diffuse hypokinesis with LVEF 40% and moderately dilated right heart with distended IVC and RVSP at least 60 mm. The patient required tracheal intubation the next day. He was given convalescent plasma and remdesivir. Overnite last night stopped making urine. This morning, BUN/creat were up to 42/1.9, from 17/0.8 yest, altho without signif metabolic alkalosis or hyperkalemia. Dr. Guzman and I were in the middle of evaluating him this morning when at about 10:15 this morning he developed subtle ST depression on his bedside monitor lead, followed by a drop in his ETCO2 from 26 to 18, and a rise in his CVP from 7 to 18 over < a 15 minutes time span. The BP dropped to 50?s, then failed to cycle. No pulse was palpable. We immediately started CPR and gave the first amp of epi. CPR and ACLS continued. As soon as the echo booted up, excellent subcostal views showed just a wiggle, with no change after each of the next two rounds of epinephrine. At that point, ETCO2 was 8. Given the poor prognosis, resuscitative efforts were discontinued and the patient at 10:47. I spoke to both of the patient?s sons, one of whom was an EMT and understood what I described to him from the resuscitation. It seemed to me that they were satisfied with our efforts. (Pedro Luis Mcclellan, .) Critical care time: 80+ min Physical Exam Vital Signs: Vital Signs: Vital Signs Temp Pulse Resp BP Pulse Ox 01/06/20 10:00 98.8 F 110 H 26 H 83/57 L 90 L 01/06/20 08:57 98.6 F 109 H 23 H 106/67 92 01/06/20 07:35 98.2 F 107 H 26 H 146/84 H 92 01/06/20 07:00 97.3 F 109 H 21 H 135/76 91 L 01/06/20 06:00 98.1 F 89 36 H 138/74 93 01/06/20 05:00 97.7 F 78 31 H 144/76 H 94 01/06/20 04:00 97.3 F 88 31 H 150/82 H 97 01/06/20 03:00 97.5 F 73 26 H 142/68 H 97 01/06/20 02:00 97.5 F 64 24 H 136/77 97 01/06/20 01:00 97.3 F 62 22 H 137/86 97 01/05/20 23:47 97.3 F 63 23 H 159/75 H 97 01/05/20 22:58 97.3 F 67 22 H 145/79 H 97 01/05/20 22:00 97.2 F 69 25 H 130/77 96 01/05/20 21:00 97.2 F 57 25 H 156/78 H 95 01/05/20 19:52 97 F 64 23 H 137/66 97 01/05/20 19:00 96.4 F L 62 22 H 137/71 97 01/05/20 18:00 97 F 57 23 H 131/68 97 01/05/20 17:00 96.8 F 62 26 H 139/63 97 01/05/20 15:55 96.4 F L 71 26 H 137/78 97 01/05/20 15:48 96.4 F L 64 25 H 137/78 97 01/05/20 15:00 96.3 F L 63 26 H 148/74 H 98 01/05/20 14:00 96.1 F L 74 25 H 149/79 H 98 01/05/20 13:00 95.9 F L 72 22 H 155/73 H 98 01/05/20 12:00 96.1 F L 63 24 H 154/55 H 96 Body Mass Index 27.0 Objective Data Labs CBC & Chem 7: 01/06/20 05:38 01/06/20 05:38 Labs: Laboratory Results - last 24 hr 01/05/20 01/06/20 01/06/20 15:35 05:38 05:38 WBC 15.7 H RBC 4.56 L Hgb 12.5 L Hct 41.0 L D MCV 89.9 MCH 27.4 MCHC 30.5 L RDW 16.5 H Plt Count 181 D MPV 10.3 Immature Gran % (Auto) 1.2 H Neut % (Auto) 94.1 H Lymph % (Auto) 1.5 L [place] % (Auto) 3.1 Eos % (Auto) 0.0 Baso % (Auto) 0.1 Lymph # (Auto) 0.2 L [place] # (Auto) 0.5 Eos # (Auto) 0.0 Baso # (Auto) 0.0 Abs Immat Gran (auto) 0.19 H Absolute Neuts (auto) 14.8 H Absolute Nucleated RBC 0.050 H Nucleated RBC % (auto) 0.3 H Smear Tech's Comments VERIFIED PT 27.9 H INR 2.3 H APTT 34.8 Fibrinogen 401 D-Dimer 96267 VBG pH VBG pCO2 VBG Oxygen Liters/Min VBG pO2 VBG HCO3 VBG O2 Saturation VBG Base Excess Sodium Potassium Chloride Carbon Dioxide Anion Gap BUN Creatinine Estim Creat Clear Calc Estimated GFR Random Glucose Calcium Phosphorus Magnesium Albumin SARS-CoV-2 IgG Ab Positive 01/06/20 01/06/20 05:38 05:38 WBC RBC Hgb Hct MCV MCH MCHC RDW Plt Count MPV Immature Gran % (Auto) Neut % (Auto) Lymph % (Auto) [place] % (Auto) Eos % (Auto) Baso % (Auto) Lymph # (Auto) [place] # (Auto) Eos # (Auto) Baso # (Auto) Abs Immat Gran (auto) Absolute Neuts (auto) Absolute Nucleated RBC Nucleated RBC % (auto) Smear Tech's Comments PT INR APTT Fibrinogen D-Dimer VBG pH 7.32 VBG pCO2 43 VBG Oxygen Liters/Min Not Reportable VBG pO2 40 VBG HCO3 22 VBG O2 Saturation 67.5 VBG Base Excess -4.4 Sodium 144 Potassium 3.8 Chloride 110 H Carbon Dioxide 22 Anion Gap 16 BUN 42 H D Creatinine 1.96 H Estim Creat Clear Calc 25.7 Estimated GFR 33 Random Glucose 202 H Calcium 8.0 L Phosphorus 3.3 Magnesium 2.3 Albumin 3.1 L SARS-CoV-2 IgG Ab Microbiology Microbiology Results: Microbiology 01/04/20 14:15 Blood - Venous Blood Culture - Preliminary No growth after 24 hours. 01/04/20 14:12 Blood - Venous Blood Culture - Preliminary No growth after 24 hours. Progress Note: A&P Time Spent With Patient Time: Total time spent is greater than 50% in coordination of care (as documented) at patient's floor/unit and/or counseling patient: Total time spent with greater than 50% in coordination of care (as documented) at patient's floor/unit and/or counseling patient:: 0 Critical Care Time Critical Care Time (minutes): 90
--- NOTE | 2020-01-06 12:00 | PC.NURSE ---
ASSUMED CARE OF PATIENT AT 0700- SEE BRIAN Thomas'S NOTE FOR AM EVENTS- NO URINE OUTPUT OVERNIGHT REPORTED BY NIGHT RN, SO FLUSHED WITH ONLY RETURN OF IRRIGANT AMT- NO CONCERN FOR CLOGGED F/C; LABS REVIEWED BY THIS RN; DR. VIERA ON UNIT AT 0930- THIS RN ASKED TO EVAL PT- CONSULT PLACED AFTER DISCUSSING WITH ICU MD DR RODRIGUEZ; PT ON IVF CVP 6-7 RANGE-, BP BEGINNING TO DROP AT 1015 TO 80S SBP, LEVOPHED TITRATED UP, ? ST SEGMENT CHANGES, SATS DROPPING TO 80S- FIO2 100% INCREASED THIS RN REQUEST TO CALL FOR RT; DR RODRIGUEZ NOTIFIED OF CONCERN FOR PT DECOMPENSATING; CVP INCREASNG, BP DIFFICULT TO OBTAIN, CODE CART TO ROOM- THIS RN REQUESTING ADDITIONAL ASSISTANCE FROM STAFF; SBP DROPPING TO 50S SBP, LEVOPHED INCREASED, PROPOFOL SHUT OFF, DIFFICULT TO PALPATE PULSE, PT MOTTLING AND MCDANIEL, CHEST COMPRESSIONS INITIATED- LEO MOCK CALLED 1035 FOR ADDITIONAL STAFF NEEDED FOR CHEST COMPRESSIONS- KONRAD APPLIED, VTACH ON MONITOR, 3 MG TOTAL GIVEN OF EPI GIVEN, 1 AMP BICARB GIVEN, NO ROSC ACHIEVED, LEO MOCK CALLED AT 1047; FAMILY CALLED BY DR RODRIGUEZ- FAYE CALLED BY THIS RN AT 1141- DECLINED, SPOKE WITH SUE RICHARDSON; TRANSPORT TO [facility] [place] @ [phone]
--- NOTE | 2020-01-06 12:12 | MHC.CM.PN ---
Code blue called. Patient . Unable to meet with patient prior.
--- NOTE | 2020-01-06 17:57 | P.DN_ITS ---
Discharge Sum: Prov Provider Primary care physician: Unknown Physician Consults: 01/04/20 19:13 Consult to Infectious Diseases Routine Consulting Provider: Isa Taylor Reason for consultation: COVID, ? REMDESIVIR 01/05/20 07:55 Consult to General Surgery Stat Consulting Provider: Maddie Bello Reason for consultation: Need reduction of Ostomy - very enlarged Has provider been notified: No 01/05/20 10:33 Consult to General Surgery Stat Consulting Provider: Micky Shah Reason for consultation: need for reduction of ostomy - very enlarged Has provider been notified: Yes 01/06/20 09:36 Consult to Nephrology Routine Consulting Provider: Uliecs Guzman Reason for consultation: ckd/renal failure Has provider been notified: Yes Discharge Sum: Diag Contributing Factors (1) Colostomy in place: (2) Prolapse of stoma: (3) Acute respiratory failure with hypoxia: (4) COVID-19: (5) CHF (congestive heart failure): (6) Pneumonia: (7) Elevated lactic acid level: (8) D-dimer, elevated: (9) Elevated troponin: (10) Acute hypokalemia: (11) Hypocalcemia: (12) Current use of anticoagulant therapy: (13) Acute on chronic systolic and diastolic heart failure, NYHA class 2: Discharge Sum: Summary Date and Time Date of admission: 01/04/20 19:03 Date of : 01/06/20 Time of : 10:47 Summary Details: NOTE DISCHARGE DIAGNOSES: 1. Bilateral pulmonary infiltrates secondary to COVID-19 pneumonia. 2. Acute hypoxemic respiratory failure secondary to above. 3. Acute renal failure. 4. Cardiac arrest secondary to COVID-19. 5. Ischemic cardiomyopathy. 6. Atrial fibrillation Mr. Kenny was an 84-year-old male with history of ischemic cardiomyopathy, hypertension, chronic atrial fibrillation anticoagulated on Coumadin, recent right lower extremity DVT and PE, osteoarthritis, and hyperlipidemia. The patient was inadvertently exposed to a number of individuals with Covid 19 on December 20. He subsequently tested positive. Over the few days prior to admission, the patient started to develop shortness of breath and a dry cough. He had no fevers or chills or body aches or chest pain. He presented to the [place] ED on January 03. Room air saturation was in the high 70s with mild to moderate respiratory distress, with sat rising to the low 90s on non-rebreather face mask. Chest x-ray showed bilat multifocal pneumonia, R>L. The patient was admitted to the ICU for mx of bilat COVID pneumonia with acute resp failure. Bedside echo showed moderate diffuse hypokinesis with LVEF 40% and moderately dilated right heart with distended IVC and RVSP at least 60 mm. The patient required tracheal intubation the next day. He was given convalescent plasma and remdesivir. That night he stopped making urine. The following morning, BUN/creat were up to 42/1.9, from 17/0.8 yest, altho without signif metabolic alkalosis or hyperkalemia. In the midmorning, he developed subtle ST depression on his bedside monitor lead, followed by a drop in his ETCO2 from 26 to 18, and a rise in his CVP from 7 to 18 over less than a 15 minutes time span. The BP dropped to 50?s, then failed to cycle. No pulse was palpable. CPR was started immediately, and the first amp of epinephrine given. CPR and ACLS continued. As soon as the echo booted up, excellent subcostal views showed just a wiggle, with no change after each of the next two rounds of epinephrine. At that point, ETCO2 was 8. Given the poor prognosis, resuscitative efforts were discontinued and the patient at 10:47. The family was notified and expressed their satisfaction with our efforts. Additional Data Attending physician: Virgil Box
== END 2020-01-06 11:55 | disposition expired | DRG 208 ==
LOC: HO.ED 18:21 → HO.ICU 19:09
PROVIDERS: Nurse Practitioner Family; Registered Nurse Community Health; Admitting Provider Internal Medicine Cardiovascular Disease; Emergency Provider Emergency Medicine; Visit Provider Anesthesiology
DX: U07.1 COVID-19 (principal); J12.89 Other viral pneumonia; J96.01 Acute respiratory failure with hypoxia; I50.43 Acute on chronic combined systolic (congestive) and diastolic (congestive) heart failure; K94.09 Other complications of colostomy; N17.9 Acute kidney failure, unspecified; E87.6 Hypokalemia; I11.0 Hypertensive heart disease with heart failure; I48.91 Unspecified atrial fibrillation; E83.51 Hypocalcemia; M19.90 Unspecified osteoarthritis, unspecified site; F17.210 Nicotine dependence, cigarettes, uncomplicated; Z85.038 Personal history of other malignant neoplasm of large intestine; Z79.01 Long term (current) use of anticoagulants; Z79.890 Hormone replacement therapy; Z79.899 Other long term (current) drug therapy
CPT/HCPCS: 36415; 71045; 80048; 80076; 81001; 82040; 82550; 82728; 82803; 83605; 83615; 83735; 83880; 84100; 84145; 84484; 85025; 85379; 85384; 85610; 85730; 86769; 86850; 86900; 86901; 87040; 93005; 94002; 94003; 94799; 96365; 96366; 96367; 99285; 99291; J0171; J0456; J0696; J1100; J1160; J1170; J1940; J2250; J3475; J3490; U0003